=== PATIENT | female | born 1970 | race Caucasian/White ===

== ENCOUNTER 2022-02-05 15:36 | Outpatient (CLI) | payer OTHER, SELFPAY ==
[2022-02-05 22:03] LABS: Albumin* 4.5 g/dL (3.3-5.0); Chloride* 105 mmol/L (96-114)
[2022-02-05 22:04] LABS: Potassium* 3.9 mmol/L (3.6-5.1); Sodium* 140 mmol/L (135-149)
[2022-02-05 22:06] LABS: Cholesterol* 272 mg/dL (90-199); Creatinine* 0.7 mg/dL (0.5-1.5); Estimated Glomerular Filt Rate 103 ml/min
[2022-02-05 22:07] LABS: Alanine Aminotransferase* 18 U/L (4-35); Alkaline Phosphatase* 95 U/L (40-150); Aspartate Amino Transferase* 21 U/L (12-35); Bilirubin Total* 0.9 mg/dL (0.1-1.5); Blood Urea Nitrogen* 14 mg/dL (7-30); Carbon Dioxide* 27 mmol/L (20-32); Glucose* 105 mg/dL (60-115); Total Protein* 7.5 g/dL (6.0-8.3); Triglycerides* 312 mg/dL (40-149)
[2022-02-05 22:08] LABS: Calcium* 9.8 mg/dL (8.4-10.6); HDL Cholesterol* 47 mg/dL (>=50); LDL Cholesterol Calculated 163 mg/dL (<100)
[2022-02-05 22:10] LABS: C Reactive Protein* 1.9 mg/dL (0.5-1.0)
[2022-02-05 22:25] LABS: Vitamin D 25 Hydroxy* 53 ng/mL (30-80)
[2022-02-05 22:57] LABS: Hepatitis C Virus Antibody* Negative (Negative)
[2022-02-07 10:58] LABS: Rheumatoid Factor <10 IU/mL (0-14)
[2022-02-07 14:45] LABS: Anti-Nuclear Ab(ANA)IgG ELISA None Detected (None Detected)
== END 2022-02-05 15:37 | disposition home or self-care (01) ==
PROVIDERS: PCP Family Medicine; Visit Provider Family Medicine
DX: Z01.419 Encounter for gynecological examination (general) (routine) without abnormal findings (principal); E55.9 Vitamin D deficiency, unspecified; E78.5 Hyperlipidemia, unspecified; E66.9 Obesity, unspecified; E04.1 Nontoxic single thyroid nodule; M13.80 Other specified arthritis, unspecified site; Z11.59 Encounter for screening for other viral diseases
CPT/HCPCS: 80053; 80061; 82306; 86039; 86140; 86200; 86431; 86618; 86803

== ENCOUNTER 2022-02-16 13:33 | Outpatient (CLI) | payer OTHER, SELFPAY | END 2022-02-16 13:34 | disposition home or self-care (01) | LOC: FRMREF 02-22 12:02 | PROVIDERS: PCP Family Medicine; Visit Provider Family Medicine | DX: Z01.419 Encounter for gynecological examination (general) (routine) without abnormal findings (principal); R30.0 Dysuria; N39.0 Urinary tract infection, site not specified | CPT/HCPCS: 87086; 87186 ==

== ENCOUNTER 2023-04-29 11:09 | Outpatient (CLI) | payer OTHER, SELFPAY | END 2023-04-29 11:10 | disposition home or self-care (01) | PROVIDERS: PCP Family Medicine; Visit Provider Family Medicine | DX: M79.7 Fibromyalgia (principal) | CPT/HCPCS: 86140; 86812 ==

== ENCOUNTER 2023-06-13 13:39 | Outpatient (CLI) | payer OTHER, SELFPAY | END 2023-06-13 13:40 | disposition home or self-care (01) | PROVIDERS: PCP Family Medicine; Visit Provider Family Medicine | DX: Z00.00 Encounter for general adult medical examination without abnormal findings (principal); E04.1 Nontoxic single thyroid nodule; E78.5 Hyperlipidemia, unspecified; E55.9 Vitamin D deficiency, unspecified; Z13.6 Encounter for screening for cardiovascular disorders; Z13.1 Encounter for screening for diabetes mellitus | CPT/HCPCS: 80053; 80061; 82728; 84443; 86039; 86140 ==

== ENCOUNTER 2023-06-27 10:57 | Outpatient (CLI) | payer OTHER, SELFPAY ==
--- NOTE | 2023-06-27 11:00 | US_ITS ---
Patient: NIKOLAI LAGUNAS Facility:?[facility] Patient ID:?[id number] Site Patient ID:?[id number]. Site :?[id number] Study:?US-Thyroid -06/27/2023 11:55:30 AM Ordering Physician:?Felicita Martinez Final Report: INDICATION: Nontoxic thyroid nodule COMPARISON: 09/04/2017 TECHNIQUE: Edwards scale and color Doppler images were acquired of the thyroid gland. FINDINGS: Cystic nodule right thyroid lobe measures 5 x 3 x 4 millimeters, previously measuring 6 millimeters. Hypoechoic and possibly cystic nodule right thyroid lobe inferior pole measures 6 x 3 x 4 millimeters, similar to the prior study. The isthmus measures 5 millimeters. Cystic nodule upper pole left thyroid lobe measures 4 x 3 x 2 millimeters. Additional hypoechoic nodule left thyroid lobe measures 4 x 3 x 4 millimeters. The right lobe measures 5.3 x 1.4 x 1.9 cm and the left lobe measures 5.1 x 1.3 x 1.5 cm in size. There are no suspicious masses or nodules. The color Doppler images demonstrate normal vascularity. There is no evidence of cervical lymphadenopathy or parathyroid mass. IMPRESSION: Bilateral subcentimeter nodules. No suspicious findings. No further follow-up indicated. Dictated by Josh Murdock MD @ 06/27/2023 1:04:31 PM Signed by:?Josh Murdock MD @06/27/2023 1:04:31 PM (Electronic Signature)
== END 2023-06-27 10:58 | disposition home or self-care (01) ==
LOC: US 10:58
PROVIDERS: PCP Family Medicine; Visit Provider Family Medicine
DX: E04.1 Nontoxic single thyroid nodule (principal)
CPT/HCPCS: 76536

== ENCOUNTER 2023-09-10 13:24 | Outpatient (CLI) | payer OTHER, SELFPAY ==
--- NOTE | 2023-09-10 13:20 | CRLHL7_ITS ---
For Patients: As a result of the Century Cures Act, medical imaging exams and procedure reports are released immediately into your electronic medical record. You may view this report before your referring provider. If you have questions, please contact your health care provider. BILATERAL SCREENING MAMMOGRAM WITH COMPUTER-AIDED DETECTION AND TOMOSYNTHESIS TECHNIQUE: CC and MLO views were obtained. These mammographic images have been obtained using full-field digital technique. These mammographic images were interpreted with the benefit of computer-aided detection. Breast tomosynthesis was used in this interpretation. COMPARISON FILM: 07/23/22, 05/13/20, 04/23/17. FINDINGS: There are scattered areas of fibroglandular density. IMPRESSION: There is no radiographic evidence for malignancy. ASSESSMENT: BI-RADS Category 1: Negative RECOMMENDATION: Routine screening mammogram in 1 year. A lay language report of this examination will be provided to the patient. JOSH VILLANUEVA M.D. Diagnostic Radiologist [email or web address] Transcribed: 11:[address]/Dictated by: Josh Villanueva MD @ 09/17/2023 9:53:00 AM (Electronically Signed)
--- OUTSIDE RECORDS SUMMARY | 2023-09-10 13:26 | XMS_ITS | Clinical Summary ---
Author Organization [facility] Address [address] [place] [address] Care Team Providers Care Keno Dealer Name Role Phone Vinicio Hanley Primary Care Provider [phone] Resolved Problems Problem Noted Date Diagnosed Date Resolved Date iamSPRAIN OF JAW 07/25/2005 10/24/2005 Social History Tobacco Use Types Packs/Day Years Used Date Smoking Tobacco: Never Assessed Adolescent Education Answer Date Record ed Getting School Help Needed Not on file 12/23 Sex and Gender Information Value Date Recorded Sex Assigned at Not on file Gender Identity Not on file Sexual Orientation Not on file Plan of Treatment Not on file Procedures Procedure Name Priority Date/Time Associated Diagnosis Comments HC CAD, DIAGNOSTIC MAMMO, W/WO DIGITIZATION Routine 01/05/2008 11:34 AM CDT from Last 3 Months or Most Recently Relevant to Health Maintenance Results * COMPUTER AIDED MAMMOGRAPHY, DIAGNOSTIC (01/05/2008 11:34 AM CDT) Anatomical Region Laterality Modality Other 01/05/2008 11:3 4 AM CDT Impressions 01/05/2008 11:42 AM CDT DIAGNOSTIC MAMMOGRAM, BILATERAL, DIGITAL - 01/05/2008. REASON FOR EXAM: The patient is here for her baseline mammogram. She has chronic generalized breast pain. FINDINGS: Normal findings. IMPRESSION: BI-RADS ONE, NEGATIVE. RECOMMENDATION: Yearly screening mammography beginning at age 40. Decrease caffeine ingestion and consider vitamin B12. Rafael Cronin MD MAMMOGRAPHY from Last 3 Months or Most Recently Relevant to Health Maintenance Care Teams Keno Dealer Relationship Specialty Start Date End Date Vinicio Hanley [address] [address] PCP - General Family Medicine 04/08/20
--- OUTSIDE RECORDS SUMMARY | 2023-09-10 13:26 | XMS_ITS | Clinical Summary ---
Author Organization [facility] Address [place], [place] [address] Care Team Providers Care Data Sciences Director Name Role Phone Vinicio Hanley MD Primary Care Provider [phone] Allergies Active Allergy Reactions Criticality Noted Date Comments Quinine Rash 09/25/2006 Medications Medication Sig Dispensed Refills Start Date End Date Status ZYRTEC 10 MG TAB take 1 tablet (10 mg) by oral route once daily 0 09/25/2006 Active NAPROXEN 250 MG TAB take 1 tab when needed 0 09/25/2006 Active MULTIPLE VITAMIN TAB take 1 tablet by oral route once daily with food 0 09/25/2006 Active TYLENOL EXTRA STRENGTH 500 MG TAB take 2 tablets (1,000 mg) by oral route every 6 hours as needed 0 09/25/2006 Active IBUPROFEN 200 MG TAB takes 2 as needed 0 09/25/2006 Active Cholecalciferol, Vitamin D3, (VITAMIN D-3) 400 unit capsule Take by mouth once daily. 0 07/14/2015 Active sertraline (ZOLOFT) 100 mg tablet Take 100 mg by mouth. Active VENTOLIN HFA 90 mcg/actuation inhaler Inhale 2 Puffs by mouth every 4 hours if needed. 6 02/08/2017 Active cyclobenzaprine (FLEXERIL) 10 mg tablet Take 1 tablet by mouth once daily. 0 12/22/2019 Active Active Problems Problem Noted Date Diagnosed Date OBESITY 12/08/2001 OLIGOMENORRHEA 12/08/2001 HYPERCHOLESTEROLEMIA 12/08/2001 NEVUS, ATYPICAL 12/08/2001 Encounters Date Type Department Care Team Description 06/14/2023 Lab Requisition [facility] [phone] Felicita Martinez MD from Last 3 Months Family History Medical History Relation Name Comments Heart Disease Maternal Grandfather Arthritis Maternal Grandmother Asthma Maternal Grandmother Osteoporosis Maternal Grandmother Arthritis Mother Asthma Mother Osteoporosis Mother Other Paternal Grandmother glaucom a Relation Name Status Comments Maternal Grandfather Maternal Grandmother Mother Paternal Grandmother Social History Tobacco Use Types Packs/Day Years Used Date Smoking Tobacco: Never Smokeless Tobacco: Never Alcohol Use Standard Drinks/Week Comments No 0 (1 standard drink = 0.6 oz pur e alcohol) Social Connections Answer Date Recorded Frequency of Communication with Friends and Fami ly Not on file 03/18/2021 Financial Resource Strain Answer Date R ecorded Difficulty of Paying Living Expenses Not on file 03/18/2021 Difficulty of Paying Living Expenses Not on file 03/18/2021 Sex and Gender Information Value Date Recorded Sex Assigned at Not on file Gender Identity Not on file Sexual Orientation Not on file Obstetrics History Last Filed Vital Signs Vital Sign Reading Time Taken Comments Blood Pressure 129/90 07/14/2015 1:34 PM CDT Pulse 99 12/22/2019 8:53 AM CDT Temperature - - Respiratory Rate - - Oxygen Saturation 99% 12/22/2019 8:53 AM CDT Inhaled Oxygen Concentration - - Weight 99.8 kg (220 lb) 12/22/2019 8:53 AM CDT Height 172.7 cm (5' 8) 12/22/2019 8:53 AM CDT Body Mass Index 33.45 12/22/2019 8:53 AM CDT Plan of Treatment Health Maintenance Due Date Last Done Comments Tdap 09/19/1979 Depression screening for age 12+ 1980 HIV for age 15-65 09/19/1983 Hepatitis C screening for age 18-79 1986 Tetanus booster 1988 Colonoscopy through age 75 2013 Lipids for age 45-75 2013 06/26/2000, 06/27/19 01 Mammogram for age 45-75 2013 Zoster (shingles) series for age 50+ (1 of 2) 2018 BMI (ht and wt on same day) for age 18+ 12/21/2020 12/22/2019 COVID-19 vaccine series (2022- season) 2022 Influenza for age 50-64 11/17/2023 Pap test for age 21-65 06/12/2026 , 06/13/2023, 04/12/2017, Additional history exists Pneumococcal series for age 6-64 Aged Out No longer eligible based on patient's age to complete this topic Procedures Procedure Name Priority Date/Time Associated Diagnosis Comments LAB TRACKING EVENT Routine 06/13/2023 2: 00 PM CDT INSIDE H[employer] GROWER THIN PREP PAP SCREEN IMAGED Routine 06/13/2023 2:00 PM CDT HPV THIN PREP Routine 06/13/2023 2:00 PM CDT CHOLESTEROL,TOTAL Routine 06/26/2000 10: 31 AM CDT from Last 3 Months or Most Recently Relevant to Health Maintenance Results * LAB TRACKING EVENT (06/13/2023 2:00 PM CDT) Other (Other) Client Collect / Unknown 06/13/2023 2:00 PM CDT 06/14/2023 3:32 PM CDT Felicita Martinez MD LAB BILL ONLY [facility] [address] [place] [id number], * INSIDE H[employer] GROWER THIN PREP PAP SCREEN IMAGED (06/13/2023 2:00 PM CDT) Case Report Gynecologic Cytology Report ? Case: [id number] ? Authorizing Provider: ??Felicita Martinez MD ?? Collected: ? 06/13/2023 1400 ? Ordering Location: ? [facility] ?Received: ?06/17/2023 0913 ? First Screen: ?Michelle Rashid ? Pathologist: ? Ernst Maier MD ? Specimen: ?INSIDE H[employer] SPECIAL[employer] GROWER ThinPrep Vial Screening, Cervical ? 06/26/2023 9:38 AM CDT [facility] INTERPRETATION/ RESULT NEGATIVE FOR INTRAEPITHELIAL LESION OR MALIGNANCY (NIL) (none) 06/26/2023 9:38 AM T [facility] R NON-NEOPLASTIC FINDING(S) Reactive cellular changes associated with inflammation/repa ir 06/26/2023 9:38 AM CDT [facility] SPECIMEN ADEQUACY Satisfactory for evaluation Endocervical component present 06/26/2023 9:38 AM CDT [facility] HPV REQUEST HPV and PAP 06/26/2023 9:38 AM CDT [facility] Date of LMP 06/26/2023 9:38 AM CDT [facility] Comment:today Last Pap Date 04/12/2017 06/26/2023 9:38 AM CDT [facility] Abnormal Pap or [place] Bx in last 5 years No 06/26/2023 9:38 AM CDT [facility] [place] Bx Done Today No 06/26/2023 9:38 AM CDT [facility] Additional Information 06/26/2023 9:38 AM CDT [facility] Comment: Interpreted at [facility] - [address] [facility] [address], [place] [address] Automated Review Successful 06/26/2023 9:38 AM CDT [facility] Comment:Specimen processed s uccessfully by automated coordinating producer device, ThinPrep Imaging System, [employer] ANCILLARY TESTING INSIDE H[employer] GROWER HPV Ordered, Please see separate report 06/26/2023 9:38 AM CDT [facility] Note The pap test is a screening technique, not a diagnostic procedure. It is used primarily to screen for squamous cancers and precursor lesions. Published studies have shown that it is subject to both false negative and false positive results. The pap test should not be used as the sole means to diagnose or exclude pre-malignant and malignant lesions. 06/26/2023 9:38 AM CDT [facility] Other (Cervical) 06/13/2023 2:00 PM CDT 06/17/2023 9:13 AM CDT Felicita Martinez MD PATHOLOGY/CYTOLOG Y [facility] [address] [place] [address], * HPV HIGH RISK (06/13/2023 2:00 PM CDT) TYPE 16 Negative Negative 06/19/2023 11:09 AM CDT [facility] TYPE 18 Negative Negative 06/19/2023 11:09 AM CDT [facility] OTHER HIGH RISK TYPES Negative Negative 06/19/2023 11:09 AM CDT [facility] TRA [facility]ORATORY Other (Cervical) 06/13/2023 2:00 PM CDT 06/17/2023 9:13 AM CDT Narrative [facility] - 06/19/2023 11:09 AM CDT HPV types 16, 18, 31, 33, 35, 39, 45, 51, 52, 56, 58, 59, 66 and 68 DNA were undetectable or below the pre-set threshold. Methodology: Hayden Jimbo 4800 HPV Test Felicita Martinez MD MICROBIOLOGY [facility] [address] [place] [address], * (ABNORMAL) CHOLESTEROL,TOTAL (06/26/2000 10:31 AM CDT) CHOLESTEROL,TOT AL 215(A) 110 - 199 mg/dL 06/26/2000 10:3 1 AM CDT Narrative 08/26/2003 11:36 AM CDT Ordered by an unspecified provider. Other Clinical Staff CHEMISTRY from Last 3 Months or Most Recently Relevant to Health Maintenance Care Teams Data Sciences Director Relationship Specialty Start Date End Date Vinicio Hanley MD [address] [place] [address] PCP - General Family Practice 02/21/17
--- OUTSIDE RECORDS SUMMARY | 2023-09-10 13:26 | XMS_ITS | Patient Health Record ---
Author Organization [facility] Address [address] [place] [address] [address] [place] [address] Care Team Providers Care Journeyman Tool And Die Maker Name Role Phone Juan ÁLVAREZ, Felicita Primary Care Provider Unav ailable [place] gonzalez Unavailable [phone] Brian Martinez Unavailable [phone] ALLERGIES Allergen (clinical drug ingredient) Drug/Non Drug Allergy documented on EMR Reaction Allergy Type Onset Date Status quinine Quinine rash Drug Allergy Active RESULTS Component Value Reference Range Notes MRI : Lumbar Reviewed date:07/30/2023 09:13:25 AM Interpretation: Performing Lab: Notes/Report: Original Report EXAM: MRI LUMBAR SPINE WITHOUT CONTRAST CLINICAL INFORMATION: Chronic and worsening axial low back pain, 30 years duration. TECHNICAL INFORMATION: 1. Sagittal, coronal and axial T1. 2. Sagittal and axial T2. 3. Sagittal STIR. SEDATION: None. COMPARISON: No existing relevant imaging immediately accessible. INTERPRETATION: Segmentation, alignment and osseous structures: Maintained lumbar lordotic curvature and vertebral body heights. No compression deformities or other indication of fracture. Chronic type II degenerative endplate reaction at L5-S1. Marrow signal elsewhere mildly heterogeneous but within normal limits. No concern for marrow replacing processes. At no level segmental subluxation. Sacrum and sacroiliac joints: Included sacrum intact and superior sacroiliac joints unremarkable. L5-S1: Severe disc degeneration with posterior bulge and endplate osteophytic ridging. No significant spinal stenosis. Mild facet joint arthropathy and foraminal narrowing. No transiting or exiting nerve compression. L4-5: Mild disc degeneration without height loss. There is mild-moderate left facet joint arthrosis. No posterior disc contour abnormality, significant spinal canal or foraminal narrowing. L3-4: Mild-moderate disc degeneration. No posterior disc protrusion, significant spinal canal or significant foraminal narrowing. The left facet joint arthropathy is L2-3: Mild disc degeneration without significant height loss. No posterior disc protrusion, significant spinal canal or foraminal narrowing. L1-2: Mild to moderate disc degeneration with right paracentral 2-3 mm disc protrusion mildly distorting the thecal sac. No transiting nerve root compression. Neural foramina adequately patent. T12-L1: Disc height and hydration are preserved. No disc contour abnormality, spinal canal or foraminal stenosis is identified. T11-12: Disc dehydration and height loss. No posterior disc protrusion, significant spinal canal or foraminal narrowing. Neurological structures: Conus maintains normal caliber and intrinsic signal. Termination is at T12. No spinal canal collections or masses. Cauda equina nerve roots thickness and distribution normal, no adhesive arachnoiditis. Paraspinous soft tissues: No paraspinous soft tissue masses or collections. CONCLUSION: 1. Severe L5-S1 disc degeneration with posterior bulge, endplate osteophyte and mild facet joint arthrosis resulting in mildly narrowed neural foramina. No neural impingement. 2. Mild-moderate L1-2 disc degeneration with small right paracentral disc protrusion and no significant stenosis. 3. Mild-moderate L2-3 through L4-5 disc degeneration with mild-moderate left L4-5, mild left L3-4 facet joint arthrosis. Read by: Nas Lyle M.D. Reviewed and Electronically Signed by: Nas Lyle M.D. MRI : Cervical Spines Reviewed date:07/30/2023 09:13:25 AM Interpretation: Performing Lab: Notes/Report: Original Report EXAM: MRI CERVICAL SPINE WITHOUT CONTRAST CLINICAL INFORMATION: Cervicalgia. Chronic neck with intermittent bilateral shoulder/upper extremity pain. TECHNICAL INFORMATION: 1. Sagittal T1 and fat saturated T2 2. Axial, bilateral oblique and sagittal T2. 3. Axial GRE T2 SEDATION: None. COMPARISON: No relevant prior imaging immediately accessible. INTERPRETATION: The cervical spinal cord shows normal caliber and signal intensity. No syrinx, intra- or extramedullary spinal canal masses or collections are seen. Cerebellar tonsils are normally positioned above the foramen magnum and limited views of the posterior fossa unremarkable. Mild reversal normal lordotic curvature with maintained vertebral body heights. No segmental subluxations and mild degenerative anterior endplate changes C4-5 through C6-7. Marrow signal elsewhere normal. C1-2: No rotatory malalignment or widening of atlantodens interval. Odontoid morphology and intrinsic signal normal. Normal craniocervical and atlantoaxial articulations. No significant spinal canal or foraminal stenosis. C2-3: Preserved disc height. No posterior disc contour abnormality or significant spinal canal narrowing. 2. Moderate right, severe left facet joint arthropathy with moderately narrow neural foramina. C3-4: Mild disc degeneration with eccentric disc bulge and endplate osteophytes to the left. Changes are contiguous with left uncinate spurring. There is mild CSF effacement and no cord contact. Mild right, severe left facet joint arthropathy. Up to moderate right/severe left biforaminal narrowing. C4-5: Mild disc degeneration with broad bulge and endplate osteophytic ridging. Canal is reduced to 7-8 mm in midline with circumferential effacement of CSF and cord contact without distortion. Moderate right, severe left bilateral facet joint arthropathy noted with joint effusions and subchondral edema to the left. Uncinate spurring and severe biforaminal stenosis. C5-6: Moderate disc degeneration with broad posterior bulge, endplate osteophyte ridging and uncinate spurring. Moderate right, mild left facet joint degeneration accompanies. Circumferential effacement of CSF flow with canal reduction to 7-8 mm in midline. Cord contacted without displacement or distortion. Severe right/moderate left biforaminal stenoses. C6-7: Preserved disc heights and with 2 mm central disc protrusion mildly effacing ventral CSF space. No cord contact occurs. Mild bilateral facet joint arthropathy, uncinate spurring and left foraminal narrowing. Right neural foramen patent. C7-T1 and T1-2: Preserved disc heights at both levels. No posterior disc contour abnormality or spinal canal narrowing. Moderate right facet joint arthropathy occurs and neural foramina remain adequately patent. No paraspinous soft tissue masses or collections. CONCLUSION: Lordotic reversal and multilevel spondylosis, potential pain generators as follows: 1. Mild-moderate C4-5, C5-6 spinal stenoses due to bulging disc and endplate osteophytic ridging. Cord contacted without compression. Similar and more mild C3-4 and C6-7 spinal stenoses with central disc protrusion at C6-7. 2. Diffuse foraminal narrowing due to uncinate spurring and facet overgrowth resulting in severe C4-5, moderate-severe C3-4 and C5-6 bilateral stenoses. 3. Diffuse facet joint arthropathy notably severe to the left C2-3 through C4-5 with inflammatory periarticular changes at C4-5. Please correlate with any specific facetogenic pain. Read by: Nas Lyle M.D. Reviewed and Electronically Signed by: Nas Lyle M.D. REASON FOR REFERRAL No Information MEDICATIONS Medication SIG (Take, Route, Frequency, Duration) Notes Start Date End Date Status Methocarbamol 750 MG 1 tablet Orally danielito ry 4 hrs Not-Taking Magnesium Oxide 400 MG 1 tablet as neede d Orally Once a day Active Ferrous Fumarate-Vitamin C Active DULoxetine HCl 30 MG 1 capsule Orally On ce a day Active Cholecalciferol 25 MCG (1000 UT) 1 capsule Orally Once a day Active Cetirizine HCl 10 MG 1 tablet Orally Onc e a day Active Celecoxib 100 MG 1 capsule with food Orally Once a day Active Red Yeast Rice 600 MG as directed Orally Active Albuterol Sulfate HFA 108 (90 Base) MCG/ACT 1 puff as needed Inhalation every 4 hrs Active Pathfork-3 Fatty Acids 1200 MG 1 capsule Orally Three times a day Active Nystatin 702677 UNIT/GM 1 application Externally Twice a day Active Multivitamin - 1 tablet Orally Once a day Active SOCIAL HISTORY Tobacco Use: Social History Observation Description Date Details (start date - stop date) Never Smoker NA - NA Sex Assigned At : Social History Observation Description Sex Assigned At Unknown Tobacco Use/Smoking: Question Answer Notes Are you a nonsmoker Alcohol Screen Question Answer Notes Did you have a drink containing alcohol in the p ast year? No Points 0 Interpretation Negative PROBLEMS Problem Type ICD Code Onset Dates Problem Status W/U Status Risk SNOMED Code Notes Problem Other chronic pain (G89.29) Active confirmed Chronic pain (02716703) Problem Radiculopathy, lumbosacral region (M54.17) Active confirmed Lumbosacral radiculopathy (9462283) Problem Cervicalgia (M54.2) Active confirmed Cervicalgia (82637051) Problem Low back pain, unspecified (M54.50) Active confirmed Low back pain (043154291) Problem Cervical radiculopathy (M54.12) Active confirmed Cervical radiculopathy (86985224) VITAL SIGNS Blood pressure diastolic 70 mm Hg 07/23/2023 Height 67 in 07/23/2023 Blood pressure systolic 122 mm Hg 07/23/2023 Weight 256 lbs 07/23/2023 BMI 40.09 kg/m2 07/23/2023 PROCEDURES Procedure Date Ordered Date Performed Result Body Sit e Intervention: 07/23/2023 07/29/2023 sched 08/12 Intervention: 2 07/23/2023 07/29/2023 sched 07/29 Encounters Encounter Location Date Provider Diagnosis [facility] [address] [place] [address] [address] [place] [address] 06/14/2023 Jonh Perales [facility] [address] [place] [address] [address] [facility] [place] [place] [address] 07/29/2023 Jonh Perales [facility] [address] [place] [address] [address] [facility] [place] [address] 08/09/2023 Jonh Perales [address] [facility] [address] [place] [address] 07/09/2023 Jonh Perales Low back pain, unspecified M54.50 ; Cervicalgia M54.2 and Other chronic pain G89.29 [address] [facility] [address] [place] [address] 07/23/2023 Brian Martinez Radiculopathy of cervical spine M54.12 ; Radiculopathy, lumbosacral region M54.17 and Other chronic pain G89.29 [address] [facility] [address] [place] [address] 07/30/2023 Jonh Perales Radiculopathy, lumbosacral region M54.17 [address] [facility] [address] [place] [address] 08/13/2023 Jonh Perales Cervical radiculopathy M54.12 ASSESSMENTS Encounter Date Diagnosis Assessment Notes Treatment Notes Treatment Clinical Notes 07/23/2023 Radiculopathy, lumbosacral region (ICD-10 - M54.17) 07/23/2023 Radiculopathy of cervical spine (ICD-10 - M54.12) 07/30/2023 Radiculopathy, lumbosacral region (ICD-10 - M54.17) 08/13/2023 Cervical radiculopathy (ICD-10 - M54.12) 07/09/2023 Cervicalgia (ICD-10 - M54.2) 07/09/2023 Low back pain, unspecified (ICD-10 - M54.50) 07/23/2023 Other chronic pain (ICD-10 - G89.29) Joya presents to the clinic for an evaluation regarding her chronic low back pain. I have reviewed her symptoms and current medications. I checked the [facility] database and I did not find any inconsistencies. I will continue with a treatment plan consisting of conservative therapy at this time. I reviewed Joya's most recent cervical and lumbar MRIs today in clinic; please see these impressions below. Based on the results of this imaging and her current pain patterns, I am recommending a C5-6 CNADICE for her neck pain at this time. She expressed a desire to proceed with this procedure at this time so I will order it for her today in clinic. If this does not provide her with adequate pain relief, I discussed considering cervical MBBs and RFAs with her. I will discuss this treatment with her further in the future if needed. I will also consider referring her to a surgeon for her cervical spine if needed in the future due to her cervical symptoms. Regarding her low back, I am recommending a bilateral L5-S1 TFE at this time, which sh also expressed interest in proceeding with at this time, so I will order this procedure today in clinic. If this does not provide her with adequate pain relief I will then consider lumbar MBBs and RFAs for her low back. Finally, once Joya has some better pain relief from injection therapy, I will then consider referring her to [facility] for a lumbar and cervical MedX program to help with her mobility and strength. Joya expressed an interest in discussing this treatment option further after the ordered injections are completed. This treatment plan was reviewed with Joya, and she was agreeable. She will return in two weeks for further evaluation or sooner if needed. I will continue to monitor her progress, adjusting her treatment plan as necessary. Plan:1. Reviewed cervical and lumbar MRI2. Order a C5-6 CESI3. Consider cervical MBBs/RFAs4. Consider cervical surgical consultation5. Order a bilateral L5-S1 TFE6. Consider lumbar MBBs/RFAs7. Consider cervical and lumbar MedX program8. Follow-up as needed Discharge instructions reviewed verbally. The patient was instructed to return to the office as scheduled and call with any questions, problems or concerns. Cervical MRI from 07/16/2023 CONCLUSION: Lordotic reversal and multilevel spondylosis, potential pain generators as follows:1. Mild-moderate C4-5, C5-6 spinal stenoses due to bulging disc and endplate osteophytic ridging. Cord contacted without compression. Similar and more mild C3-4 and C6-7 spinal stenoses with central disc protrusion at C6-7.2. Diffuse foraminal narrowing due to uncinate spurring and facet overgrowth resulting in severe C4-5, moderate-severe C3-4 and C5-6 bilateral stenoses.3. Diffuse facet joint arthropathy notably severe to the left C2-3 through C4-5 with inflammatory periarticular changes at C4-5. Please correlate with any specific facetogenic pain. Lumbar MRI from 07/16/2023 CONCLUSION: Lordotic reversal and multilevel spondylosis, potential pain generators as follows:1. Mild-moderate C4-5, C5-6 spinal stenoses due to bulging disc and endplate osteophytic ridging. Cord contacted without compression. Similar and more mild C3-4 and C6-7 spinal stenoses with central disc protrusion at C6-7.2. Diffuse foraminal narrowing due to uncinate spurring and facet overgrowth resulting in severe C4-5, moderate-severe C3-4 and C5-6 bilateral stenoses.3. Diffuse facet joint arthropathy notably severe to the left C2-3 through C4-5 with inflammatory periarticular changes at C4-5. Please correlate with any specific facetogenic pain. 07/09/2023 Other chronic pain (ICD-10 - G89.29) Joya presents to the clinic for an evaluation regarding her chronic low back pain. I have reviewed her symptoms and current medications. I checked the [facility] database and I did not find any inconsistencies. I will continue with a treatment plan consisting of conservative therapy. I reviewed and discussed her most recent MR SI Joints dating to 08/03/2022 in great detail with her in clinic today. For further evaluation, I have ordered a Lumbar and Cervical MRI without contrast to [facility]. In the future, I will be considering injection therapy pending imaging results and patient's interest. This treatment plan was reviewed with Joya, and she was agreeable. She will return in two weeks for further evaluation or sooner if needed. I will continue to monitor her progress, adjusting her treatment plan as necessary. Plan:1. Reviewed most recent MR SI joints 2. Order MRI Lumbar and Cervical w/o contrast to [facility]3. Consider injection therapy 4. Follow up in 2 weeks for MRI review Discharge instructions reviewed verbally. The patient was instructed to return to the office as scheduled and call with any questions, problems or concerns. 07/09/2023 Other Maicol Baig, am serving as a scribe to document services personally performed by Brian Martinez PA-C, based upon my observations and the provider's statements to me. All documentation has been reviewed by the aforementioned GLORIA as well as Jonh Perales MD, prior to being entered into the official medical record. Jonh Baig MD attest that the above named individual is acting in scribe capacity, has observed Brian Martinez's performance of the services and has documented them in accordance with her direction. The documentation recorded by the scribe accurately reflects the service Brian Martinez PA-C and Jonh Perales MD, personally performed and the decisions made by them. 07/23/2023 Other Ivy Baig, am serving as a scribe to document services personally performed by Brian Martinez PA-C, based upon my observations and the provider's statements to me. All documentation has been reviewed by the aforementioned GLORIA as well as Jonh Perales MD, prior to being entered into the official medical record. Jonh Baig MD attest that the above named individual is acting in scribe capacity, has observed Brian Martinez's performance of the services and has documented them in accordance with her direction. The documentation recorded by the scribe accurately reflects the service Brian Martinez PA-C, and Jonh Perales MD personally performed and the decisions made by them. PLAN OF TREATMENT Pending Test Test Name Order Date MRI : Cervical Spines 07/09/2023 MRI : Lumbar 07/09/2023 Insurance Providers Payer Name Payer Address Payer Phone Subscriber Number Group Number Insured Name Patient Relationship to Insured Coverage Start Date Coverage End Date R [address] [address] [place] [address] [id number] Trey Hernandez Spouse - patient is the spouse of the insured MEDICAL (GENERAL) HISTORY Medical History History ICD Code Asthma Migraines GERD Depression ADD Surgical History Surgery Date(Month/Year) Tibial Tubercle Transfer Bilateral Hospitalization History Reason Date(Month/Year) Surgical
--- OUTSIDE RECORDS SUMMARY | 2023-09-10 13:26 | XMS_ITS | Continuity of Care Document ---
Author Organization [facility] Address [address] [place] [address] Phone Care Team Providers Care Propagator Name Role Phone Marilyn ÁLVAREZ, Jenn Unavailable Unavailable Allergies, Adverse Reactions, Alerts Substance Reaction Status Criticality quinine Active No Information Medications Medication Instructions Dosage Effective Dates (start - stop) Status Comments Multiple Vitamins tablet take 1 tablet by oral route every day with food - Active tramadol 50 mg tablet take 1 by Oral rou te once prn 1 - Active nystatin 100,000 unit/gram topical cream apply by topical route 2 times every day to the affected area(s) 0.00 - Active albuterol sulfate HFA 90 mcg/actuation aerosol inhaler inhale 2 puff by inhalation route every day as needed 2 puff - Active gabapentin 300 mg capsule take 1 capsule by oral route 3 times every day 300 MG - Active duloxetine 60 mg capsule,delayed release take 1 capsule by oral route every day 60 MG - Active Procedures Procedure Date Office/Outpatient Visit, Est Office/Outpatient Visit, New Routine Venipuncture Specimen Handling Rbc Sed Rate, Automated Assay Of Serum Albumin Assay Of Creatinine Transferase (Ast) (Sgot) Alanine Amino (Alt) (Sgpt) Assay Of Ck (Cpk) CReactive Protein Antinuclear Antibodies CCP Antibody Lyme Disease Antibody Rheumatoid Factor, IGM Rheumatoid Factor, IGG, IGA Assay Of Calcium Complete Cbc WAuto Diff Wbc Advance Directives Directive Yes / No Effective Date File Name No Information Encounters Encounter Description Practice Location Reason(s) For Visit Diagnoses Date Provider Providers Copied on Encounter [facility], [address], [place], [address], [place] tel:[phone] [facility] , No Information 3 Marilyn Barajas. [facility] [address], [place], [address], [place]. tel:[phone] Office/Outpa tient Visit, Est [facility], [address], [place], [address], [place] tel:[phone] [facility] , Joint Pain (chief complaint) myalgia (chief complaint) elevated esr (chief complaint) Elevated ESRPain in jointHypermo bility syndromeLumb ago 3 Marilyn Barajas. [facility] [address], [place], [address], [place]. tel:[phone] Referring Provider: Jenn Catherine, [facility] [address], [place], [address]. tel:[phone] Office/Outpa tient Visit, New [facility], [address], [place], [address], [place] tel:[phone] [facility] , Joint Pain (chief complaint) myalgia (chief complaint) elevated esr (chief complaint) Elevated ESRPain in jointMyalgia FatigueHyper mobility syndrome Jun-0 3 Marilyn Barajas. [facility] [address], [place], [address], . tel:[phone] Referring Provider: Jenn Catherine, [facility] [address], [place], [address]. tel:[phone] Family History Family Member Type Diagnosis Age At Onset Paternal grandfather Problem Diabetes mellitus Father Problem hypercholesterolemia Maternal grandmother Problem hypercholesterolemia Maternal aunt Problem cystic fibrosis Maternal grandmother Problem Cardiovascular disea se Paternal grandfather Problem prostate cancer Paternal grandfather Problem malignant neoplasm o f pancreas Maternal grandmother Problem osteoporosis Mother Problem osteoporosis Mother Problem cystic fibrosis Paternal grandmother Problem Diabetes mellitus Father Problem psoriasis with arthropathy Maternal grandmother Problem breast cancer Father Problem Diabetes mellitus Brother Problem psoriasis with arthropathy Payers Payer name Insurance type Covered green party ID Rajinder kessler(s) R [id number] Social History Type Description Quantity Date Captured Comments Alcohol Use Details Unknown Caffeine Use Details Unknown Tobacco Use Status No Information Smoking Status No Information Sex Female Chief Complaint And Reason For Visit No Information Reason For Referral Reason For Referral No Information History Of Present Illness Encounter Date Complaint History Of Prese nt Illness Joint Pain myalgia elevated esr Joint Pain myalgia elevated esr Functional Status Date Functional Assessmen t No Information Instructions Date Instruction Additional Infor mation order MRI of SI jointsrtc: tbd R elated to Lumbago proceed with dermato logy consultationmonitor symptoms, conservative caresrtc: tbd Related to Pain in joint strengthening Related to Hyper mobility syndrome check labs as listed order XRs of hands and feetmonitor symptoms, conservative caresrtc: 4-6 weeks Related to Pain in joint recheck ESR and CRPrtc: 4-6 week s Related to Elevated ESR check TSHconsider f/ u with PCP to discuss sleep study Related to Fatigue check CPKrecheck inf lammation markersencouraged low impact exercise as able Related to Myalgia strengthening Related to Hyper mobility syndrome Assessments Type Assessment Date No Information Patient Care Teams Name Effective Dates (start - stop) Status Members No Information
--- OUTSIDE RECORDS SUMMARY | 2023-09-10 13:26 | XMS_ITS | Referral Summary ---
Author Organization [facility] Address [address] [place] [address] Care Team Providers Care Solid Waste Analyst Name Role Phone Vinicio Hanley Primary Care Provider [phone] Resolved Problems Problem Noted Date Diagnosed Date [...] Recently Relevant to Health Maintenance Care Teams Solid Waste Analyst Relationship Specialty Start Date End Date Vinicio Hanley [address] [address] PCP - General Family Medicine 04/08/20
--- OUTSIDE RECORDS SUMMARY | 2023-09-10 13:26 | XMS_ITS | Clinical Summary ---
[facility] Organization [facility] Address [address], [place] [address] Care Team Providers Care Heating And Cooling Systems Engineer Name Role Phone Vinicio Hanley MD Primary Care Provider [phone] Source Comments You are receiving this document as you are listed as the primary care provider,follow-up provider, or the patient has been referred to you for consultation.This is in compliance with the Medicare and[facility] System[facility] EHR Incentive Program,which states Providers who transition their patient to another setting of careor provider of care or refers their patient to another provider of care shouldprovide summary care record for each transition of care or referral. [employer] Allergies Active Allergy Reactions Criticality Noted Date Comments Quinine 02/17/2002 rash Medications Medication Sig Dispensed Refills Start Date End Date Status TRIAMCINOLONE ACETONIDE (KENALOG) 0.1% CREAMIndications:Con tact dermatitis and other eczema, due to unspecified cause apply bid prn 60 6 05/01/2004 Active Additional Information Patient not taking.Reported on 08/21/2016 ALBUTEROL (PROVENTIL, VENTOLIN) 90MCG/ACT INHALERIndications:S hortness of breath Inhale 1 or 2 puffs by mouth every 4 to 6 hours as needed for wheezing or shortness of breath 1 99 05/01/2004 Active sertraline (ZOLOFT) 100 MG tablet Take 100 mg by mouth daily. Active Active Problems Problem Noted Date Diagnosed Date Muscle pain 05/01/2004 Overview: Epic ; Myalgia and myositis Contact dermatitis and eczema 05/01/2004 Overview: Contact dermatitis and other eczema, due to unspecified cause Resolved Problems Problem Noted Date Diagnosed Date Resolved Date Low back pain 08/21/2016 01/23/2017 Neck pain 08/21/2016 01/23/2017 Family History Medical History Relation Name Comments Coronary Artery Disease Maternal Grandfather SC-40 known congenital defect, age 60 Cancer, Breast Maternal Grandmother ? 65 Cancer, Prostate Paternal Grandfather Diabetes, Type II Paternal Grandmother Relation Name Status Comments Maternal Grandfather Maternal Grandmother Paternal Grandfather Paternal Grandmother Social History Tobacco Use Types Packs/Day Years Used Date Smoking Tobacco: Never Alcohol Use Standard Drinks/Week Comments Not Asked 0 (1 standard drink = 0.6 oz pur e alcohol) Sex and Gender Information Value Date Recorded Sex Assigned at Not on file Gender Identity Not on file Sexual Orientation Not on file Last Filed Vital Signs Vital Sign Reading Time Taken Comments Blood Pressure 118/72 05/01/2004 3:58 PM ELECTRIC SCOOP OPERATOR Pulse 84 05/01/2004 3:58 PM ELECTRIC SCOOP OPERATOR Temperature 36.6 ??C (97.9 ??F) 02/17/2002 2:10 PM CS T Respiratory Rate 16 05/01/2004 3:58 PM ELECTRIC SCOOP OPERATOR Oxygen Saturation - - Inhaled Oxygen Concentration - - Weight 102.5 kg (226 lb) 05/01/2004 3:58 PM ELECTRIC SCOOP OPERATOR Height 172.7 cm (5' 8) 05/01/2004 3:58 PM ELECTRIC SCOOP OPERATOR Body Mass Index 34.36 05/01/2004 3:58 PM ELECTRIC SCOOP OPERATOR Plan of Treatment Health Maintenance Due Date Last Done Comments Colon Cancer Screening Plan Due 1968 Hep C Screening (Preventive Services) 1968 Mammogram 1968 HIV Screening (Preventive Services) 1984 DTaP/Tdap/Td (1 - Tdap) 09/19/1987 HepB (1) 09/19/1987 Cervical Cancer Screening Due 05/02/2004 05/01/2004 Adult Preventive Visit 05/01/2005 05/01/2004 Cholesterol 2013 02/24/2002 Zoster/Shingles (1 of 2) 2018 COVID-19 Vaccine ( - 2022-2 4 season) 2022 Influenza (Season Ended) 2023 HepA Aged Out No longer eligi ble based on patient's age to complete this topic Hib Aged Out No longer eligi ble based on patient's age to complete this topic IPV (Polio) Aged Out No longer eligi ble based on patient's age to complete this topic MCV4 Aged Out No longer eligi ble based on patient's age to complete this topic Pneumococcal Aged Out No longer eligi ble based on patient's age to complete this topic Procedures Procedure Name Priority Date/Time Associated Diagnosis Comments PAP TEST, ROUTINE Routine 05/01/2004 12: 00 AM ELECTRIC SCOOP OPERATOR Screening Mal Neop-Cervix LIPID PANEL, FAST > 12 HOUR Routine 02/24/2002 9:37 AM ELECTRIC SCOOP OPERATOR from Last 3 Months or Most Recently Relevant to Health Maintenance Results * PAP TEST, ROUTINE [[id number]] (05/01/2004 12:00 AM ELECTRIC SCOOP OPERATOR) Cytology, Pap (NOTE) Care Navigator Cytology Report Patient Name: JOYA HERNANDEZ Taken: 05/01/2004 Received: 05/03/2004 Reported: 05/09/2004 Physician(s): MARIELA SANCHEZ ([id number]) ?Source of Specimen Liquid routine Pap, cervical/endocervi olivia: ?Specimen Adequacy ?Satisfactory for evaluation. ??Endocervical component present. ? Final Cytologic Interpretation/Res ult NEGATIVE FOR INTRAEPITHELIAL LESION OR MALIGNANCY (NILM) ? kp1/05/09/2004 Electronically Signed Out By JOE MENDEZ ??CT(ASCP) JOE MENDEZ ??CT(ASCP) ?Pap Smear History ?Date of Last Menstrual Period: ? 04/06/04 ?Contraceptive History: ?Not Stated/Unknown ?Other Clinical Conditions: ?LAST PAP: normal HPV reflex testing requested with interpretation of ASCUS ? [facility] 05/01/2004 05/03/2004 2:1 4 PM ELECTRIC SCOOP OPERATOR Mariela Pereira Rosy MCARTHUR CNP LAB_[address] [place], [place] [phone] * CHOLESTEROL LIPID PANEL FAST >12HR FAST (02/24/2002 9:37 AM ELECTRIC SCOOP OPERATOR) Cholesterol 198 <200 mg/dl [facility] Triglyceride 115 <200 mg/dl [facility] HDL 37 >35 mg/dl [facility] LDL, Calc. 138 mg/dl [facility] Hours Fasting 12 hours [facility] 02/24/2002 9:37 AM ELECTRIC SCOOP OPERATOR 02/24/2002 9:38 AM ELECTRIC SCOOP OPERATOR Sarika Powell MD LAB[facility] [address] [address] from Last 3 Months or Most Recently Relevant to Health Maintenance Care Teams Heating And Cooling Systems Engineer Relationship Specialty Start Date End Date Vinicio Hanley MD [address] [place] [address] PCP - General Family Practice 08/17/16
--- OUTSIDE RECORDS SUMMARY | 2023-09-10 13:26 | XMS_ITS | Encounter Summary ---
[facility] Organization [email or web address] Address [address], [place] [address] Care Team Providers Care Tombstone Setter Name Role Phone Vinicio Hanley MD Primary Care Provider [phone] Encounter Details Date Type Department Care Team (Late st Contact Info) Description 10/20/2002 Hospital External to Sarika Powell MD [address] [place] [address] [facility] admission Social History Tobacco Use Types Packs/Day Years Used Date Smoking Tobacco: Never Alcohol Use Standard Drinks/Week Comments Not Asked 0 (1 standard drink = 0.6 oz pur e alcohol) Sex and Gender Information Value Date Recorded Sex Assigned at Not on file Gender Identity Not on file Sexual Orientation Not on file documented as of this encounter Progress Notes * Sarika Powell - 10/20/2002 12:00 AM CDT documented in this encounter Plan of Treatment Not on file documented as of this encounter Visit Diagnoses Not on filedocumented in this encounter Care Teams Tombstone Setter Relationship Specialty Start Date End Date Vinicio Hanley MD [address] [place] [address] PCP - General Family Practice 08/17/16 documented as of this encounter
== END 2023-09-10 13:25 | disposition home or self-care (01) ==
LOC: MAMMO 13:25
PROVIDERS: PCP Family Medicine; Visit Provider Family Medicine
DX: Z12.31 Encounter for screening mammogram for malignant neoplasm of breast (principal)
CPT/HCPCS: 77063; 77067

== ENCOUNTER 2023-11-12 11:46 | Outpatient (CLI) | payer OTHER, SELFPAY | END 2023-11-12 11:47 | disposition home or self-care (01) | LOC: NFLDREF 11-14 12:31 | PROVIDERS: PCP Family Medicine; Referring Provider Family Medicine; Visit Provider Family Medicine | DX: R39.89 Other symptoms and signs involving the genitourinary system (principal); N39.0 Urinary tract infection, site not specified; B37.31 Acute candidiasis of vulva and vagina | CPT/HCPCS: 87086; 87186 ==

== ENCOUNTER 2024-01-08 09:42 | Outpatient (CLI) | payer OTHER, SELFPAY ==
--- OUTSIDE RECORDS SUMMARY | 2024-01-09 08:26 | XMS_ITS | Patient Health Record ---
Author Organization [facility] Address [address] [place] [address] [address] [place] [address] Care Team Providers Care Embedded Systems Developer Name Role Phone Juan ÁLVAREZ, Felicita Primary Care Provider Unav ailable [place] Unavailable [phone] Brian Martinez Unavailable [phone] Allergies Allergen (clinical drug ingredient) Drug/Non Drug Allergy documented on EMR Reaction Allergy Type Onset Date Status quinine Quinine rash Drug Allergy Active Results Component Value Reference Range Notes MRI : Cervical Spines Reviewed date:07/30/2023 09:13:25 [...] and Electronically Signed by: Nas Lyle M.D. - Original Report EXAM: MRI CERVICAL S PINE WITHOUT CONTRAST CLINICAL INFORMATION : Cervicalgia. Chronic neck with intermittent bilateral shoulder/upper extremity pain. TECHNICAL INFORMATION: 1. Sagittal T1 and f at saturated T2 2. Axial, bilateral oblique and sagittal T2. 3. Axial GRE T2 SEDATION: None. COMPARISON: No relev ant prior imaging immediately accessible. INTERPRETATION: The cervical spinal cord shows normal caliber and signal intensity. No syrinx , intra- or extramedullary spinal canal masses or collections are seen . Cerebellar tonsils are normally positioned above the foramen magnum and l imited views of the posterior fossa unremarkable. Mild reversal normal lord otic curvature with maintained vertebral body heights. No segmental subluxatio ns and mild degenerative anterior endplate changes C4-5 through C6-7. Marrow signal elsewhere normal. C1-2: No rotatory ma lalignment or widening of atlantodens interval. Odontoid morphology and intri nsic signal normal. Normal craniocervical and atlantoaxial articulations. No si gnificant spinal canal or foraminal stenosis. C2-3: Preserved disc height. No posterior disc contour abnormality or significant spinal c anal narrowing. 2. Moderate right, s evere left facet joint arthropathy with moderately narrow neural foramina. C3-4: Mild disc dege neration with eccentric disc bulge and endplate osteophytes to the left. Changes are contiguous with left uncinate spurring. There is mild CSF effacement and n o cord contact. Mild right, severe left facet joint arthropathy. Up to m oderate right/severe left biforaminal narrowing. C4-5: Mild disc dege neration with broad bulge and endplate osteophytic ridging. Canal is reduced to 7-8 mm in midline with circumferential effacement of CSF and cord contact wit hout distortion. Moderate right, severe left bilateral facet joint arthropa thy noted with joint effusions and subchondral edema to the left. Uncinate spurr ing and severe biforaminal stenosis. C5-6: Moderate disc degeneration with broad posterior bulge, endplate osteophyte ridging a nd uncinate spurring. Moderate right, mild left facet joint degeneration accompa nies. Circumferential effacement of CSF flow with canal reduction to 7-8 mm in midline. Cord contacted without displacement or distortion. Severe right/moderate left biforaminal stenoses. C6-7: Preserved disc heights and with 2 mm central disc protrusion mildly effacing ventral CSF space. No cord contact occurs. Mild bilateral facet joint arthropathy, uncinat e spurring and left foraminal narrowing. Right neural foramen patent. C7-T1 and T1-2: Pres erved disc heights at both levels. No posterior disc contour abnormality or spinal canal narrowing. Moderate right facet joint arthropathy occurs a nd neural foramina remain adequately patent. No paraspinous soft tissue masses or collections. CONCLUSION: Lordotic reversal and multilevel spondylosis, potential pain generators as follows: 1. Mild-moderate C4- 5, C5-6 spinal stenoses due to bulging disc and endplate osteophytic ridging. Cord contacted without compression. Similar and more mild C3-4 and C6-7 spinal stenoses with central disc protrusion at C6-7. 2. Diffuse foraminal narrowing due to uncinate spurring and facet overgrowth resulting in severe C4-5, moderate-severe C3-4 and C5-6 bilateral stenoses. 3. Diffuse facet anca nt arthropathy notably severe to the left C2-3 through C4-5 with inflammatory pe riarticular changes at C4-5. Please correlate with any specific facetogenic pain. Read by: Nas Lyle M.D. Reviewed and Electro nically Signed by: Nas Lyle M.D. MRI : Lumbar Reviewed date:07/30/2023 09:13:25 AM [...] and Electronically Signed by: Nas Lyle M.D. - Original Report EXAM: MRI LUMBAR SPI NE WITHOUT CONTRAST CLINICAL INFORMATION : Chronic and worsening axial low back pain, 30 years duration. TECHNICAL INFORMATION: 1. Sagittal, coronal and axial T1. 2. Sagittal and axial T2. 3. Sagittal STIR. SEDATION: None. COMPARISON: No exist ing relevant imaging immediately accessible. INTERPRETATION: Segmentation, alignm ent and osseous structures: Maintained lumbar lordotic curvature and verteb ral body heights. No compression deformities or other indication of fractu re. Chronic type II degenerative endplate reaction at L5-S1. Marrow signal elsewhere mildly heterogeneous but within normal limits. No concern for marro w replacing processes. At no level segmental subluxation. Sacrum and sacroilia c joints: Included sacrum intact and superior sacroiliac joints unremarkable. L5-S1: Severe disc d egeneration with posterior bulge and endplate osteophytic ridging. No signific ant spinal stenosis. Mild facet joint arthropathy and foraminal narrowing. No transiting or exiting nerve compression. L4-5: Mild disc dege neration without height loss. There is mild-moderate left facet joint arthrosi s. No posterior disc contour abnormality, significant spinal canal or fora jules narrowing. L3-4: Mild-moderate disc degeneration. No posterior disc protrusion, significant spinal c anal or significant foraminal narrowing. The left facet joint arthropathy is L2-3: Mild disc dege neration without significant height loss. No posterior disc protrusion, signific ant spinal canal or foraminal narrowing. L1-2: Mild to modera te disc degeneration with right paracentral 2-3 mm disc protrusion mildly di storting the thecal sac. No transiting nerve root compression. Neural foramina adequately patent. T12-L1: Disc height and hydration are preserved. No disc contour abnormality, spinal canal or fora jules stenosis is identified. T11-12: Disc dehydra tion and height loss. No posterior disc protrusion, significant spinal c anal or foraminal narrowing. Neurological structu res: Conus maintains normal caliber and intrinsic signal. Termination is at T1 2. No spinal canal collections or masses. Cauda equina nerve roots thicknes s and distribution normal, no adhesive arachnoiditis. Paraspinous soft tis sues: No paraspinous soft tissue masses or collections. CONCLUSION: 1. Severe L5-S1 disc degeneration with posterior bulge, endplate osteophyte and mild facet joint art hrosis resulting in mildly narrowed neural foramina. No neural impingement. 2. Mild-moderate L1- 2 disc degeneration with small right paracentral disc protrusion and no si gnificant stenosis. 3. Mild-moderate L2- 3 through L4-5 disc degeneration with mild-moderate left L4-5, mild left L3-4 facet joint arthrosis. Read by: Nas Lyle M.D. Reviewed and Electro nically Signed by: Nas Lyle M.D. Reason For Referral No Information Medications Medication SIG (Take, Route, Frequency, Duration) Notes [...] as needed Inhalation every 4 hrs Active [place]-3 Fatty Acids 1200 MG 1 capsule Orally Three times a day Active Nystatin 068186 UNIT/GM 1 application Externally Twice a day Active Multivitamin - 1 tablet Orally Once a day Active Social History Tobacco Use: Social History Observation Description Date Details (start date - stop date) Never Smoker NA - NA Tobacco Use/Smoking: Question Answer Notes Are you a nonsmoker Alcohol Screen Question Answer Notes Did you have a drink containing alcohol in the p ast year? No Points 0 Interpretation Negative Problems Problem Type SNOMED Code ICD Code Onset Dates Problem Status W/U Status Risk Notes Problem Chronic pain (66737747) Other chronic pain (G89.29) Active confirmed Problem Lumbosacral radiculopathy (2198098) Radiculopathy, lumbosacral region (M54.17) Active confirmed Problem Cervicalgia (50405969) Cervicalgia (M54.2) Active confirmed Problem Low back pain (271638975) Low back pain, unspecified (M54.50) Active confirmed Problem Cervical radiculopathy (58684541) Cervical radiculopathy (M54.12) Active confirmed Vital Signs Blood pressure diastolic 70 mm Hg 07/23/2023 Height 67 in 07/23/2023 Blood pressure systolic 122 mm Hg 07/23/2023 Weight 256 lbs 07/23/2023 BMI 40.09 kg/m2 07/23/2023 Procedures Procedure Date Ordered Date Performed Result Body Sit e Intervention: 2 07/23/2023 07/29/2023 sched 07/29 Intervention: 07/23/2023 07/29/2023 sched 08/12 Encounters Encounter Location Date Provider Diagnosis [facility] [address] [place] [phone] 07/09/2023 Jonh [place] Low back pain, unspecified M54.50 ; Cervicalgia M54.2 and Other chronic pain G89.29 [facility] [address] [phone] 07/23/2023 Brian Bolick Radiculopathy of cervical spine M54.12 ; Radiculopathy, lumbosacral region M54.17 and Other chronic pain G89.29 [facility] [address] [facility] [address] [place] [phone] 07/30/2023 Jonh [place] Radiculopathy, lumbosacral region M54.17 [address] [facility] [address] [place] [phone] 08/13/2023 Jonh [place] Cervical radiculopathy M54.12 [facility] [address] [place] [address] 06/14/2023 Jonh Perales [facility] [address] [place] [address] 07/29/2023 Jonh Perales [facility] [address] [place] [address] [address] [place] [address] 08/09/2023 Jonh [place] Assessments Encounter Date Diagnosis (ICD Code) Assessment Notes Treatment Notes Treatment Clinical Notes [...] symptoms and current medications. I checked the [facility] database and I did not find any inconsistencies. I will continue with a treatment plan consisting of conservative therapy at this time. I reviewed Joya's most recent cervical and lumbar MRIs today in clinic; please see these impressions below. Based on the results of this imaging and her current pain patterns, I am recommending a C5-6 CANDICE for her neck pain at this time. [...] I will then consider referring her to [facility] for a lumbar and cervical MedX [...] symptoms and current medications. I checked the [facility] database and I did not find any inconsistencies. I will continue with a treatment plan consisting of conservative therapy. I reviewed and discussed her most recent MR SI Joints dating to 08/03/2022 in great detail with her in clinic today. For further evaluation, I have ordered a Lumbar and Cervical MRI without contrast to [facility]. In the future, I will be [...] MRI Lumbar and Cervical w/o contrast to [facility]. Consider injection therapy 4. Follow up [...] performed and the decisions made by them. Plan Of Treatment Pending Test Test Name Order Date MRI : Cervical Spines 07/09/2023 MRI : Lumbar 07/09/2023 Insurance Providers Payer Name Payer Address Payer Phone Subscriber Number Group Number Insured Name Patient Relationship to Insured Coverage Start Date Coverage End Date R [address] [address] [place] [address] [id number] Trey Hernandez Spouse - patient is the spouse of the insured Medical (General) History Medical History History ICD Code Asthma Migraines GERD Depression ADD Surgical History Surgery Date(Month/Year) Tibial Tubercle Transfer Bilateral Hospitalization History Reason Date(Month/Year) Surgical
--- OUTSIDE RECORDS SUMMARY | 2024-01-09 08:26 | XMS_ITS | Clinical Summary ---
Author Organization [facility] Address [address] [place] [address] Care Team Providers Care Electric Motor Winders Assembler Name Role Phone Vinicio Hanley Primary Care Provider [phone] Resolved Problems Problem Noted Date Diagnosed Date Resolved Date iamSPRAIN OF JAW 07/25/2005 10/24/2005 Social History Tobacco Use Types Packs/Day Years Used Date Smoking Tobacco: Never Assessed Adolescent Education Answer Date Record ed Getting School Help Needed Not on file 12/23 Comments Unknown Sex and Gender Information Value Date Recorded Sex Assigned at Not on file Legal Sex Female 3:45 AM SUPERVISOR PUBLICATIONS PRODUCTION Gender Identity Not on file Sexual Orientation Not on file Plan of Treatment Not on file Insurance [facility] Care Teams Electric Motor Winders Assembler Relationship Specialty Start Date End Date Vinicio Hanley [address] [address] PCP - General Family Medicine 04/08/20
--- OUTSIDE RECORDS SUMMARY | 2024-01-09 08:26 | XMS_ITS | Clinical Summary ---
[facility] Address [address], [place] [address] Care Team Providers Care Sheep Killer Name Role Phone Vinicio Hanley MD Primary Care Provider [phone] Source Comments You are receiving this document as you are listed as the primary care provider,follow-up provider, or the patient has been referred to you for consultation.This is in compliance with the Medicare and[facility] Hospital[facility] EHR Incentive Program,which states Providers who transition their patient to another setting of careor provider of care or refers their patient to another provider of care shouldprovide summary care record for each transition of care or referral. Fast Asset Allergies Active Allergy Reactions Criticality Noted Date [...] Noted Date Diagnosed Date Muscle pain 05/01/2004 Overview (11/07/2016): Epic ; Myalgia and myositis Contact dermatitis and eczema 05/01/2004 Overview (11/07/2016): Contact dermatitis and other eczema, due to unspecified cause Resolved Problems Problem Noted Date Diagnosed Date Resolved Date Low back pain 08/21/2016 01/23/2017 Neck pain 08/21/2016 01/23/2017 Family History Medical History Relation Name Comments Coronary Artery Disease Maternal Grandfather PR-40 known congenital defect, age 60 Cancer, Breast [...] Comments Blood Pressure 118/72 05/01/2004 3:58 PM SPOT MACHINE OPERATOR Pulse 84 05/01/2004 3:58 PM SPOT MACHINE OPERATOR Temperature 36.6 ??C (97.9 ??F) 02/17/2002 2:10 PM CS T Respiratory Rate 16 05/01/2004 3:58 PM SPOT MACHINE OPERATOR Oxygen Saturation - - Inhaled Oxygen Concentration - - Weight 102.5 kg (226 lb) 05/01/2004 3:58 PM SPOT MACHINE OPERATOR Height 172.7 cm (5' 8) 05/01/2004 3:58 PM SPOT MACHINE OPERATOR Body Mass Index 34.36 05/01/2004 3:58 PM SPOT MACHINE OPERATOR Plan of Treatment Health Maintenance Due Date Last Done Comments Colon Cancer Screening Plan Due 1970 Hep C Screening (Preventive Services) 1970 Mammogram 1970 HIV Screening (Preventive Services) 1984 DTaP/Tdap/Td (1 - Tdap) 09/19/1987 HepB (1) 09/19/1987 Cervical Cancer Screening Due 05/02/2004 05/01/2004 Adult Preventive Visit 05/01/2005 05/01/2004 Cholesterol 2013 02/24/2002 Zoster/Shingles (1 of 2) 2018 COVID-19 Vaccine (2023-2 5 season) 2023 Influenza (#1) 2023 HepA Aged Out No longer eligi ble based on patient's age to complete this topic Hib Aged Out No longer eligi ble based on patient's age to complete this topic IPV (Polio) Aged Out No longer eligi ble based on patient's age to complete this topic RSV Aged Out No longer eligi ble based on patient's age to complete this topic MCV4 Aged Out No longer eligi ble based on patient's age to complete this topic Pneumococcal Aged Out No longer eligi ble based on patient's age to complete this topic Procedures Procedure Name Priority Date/Time Associated Diagnosis Comments PAP TEST, ROUTINE Routine 05/01/2004 12: 00 AM SPOT MACHINE OPERATOR Screening Mal Neop-Cervix LIPID PANEL, FAST > 12 HOUR Routine 02/24/2002 9:37 AM SPOT MACHINE OPERATOR from Last 3 Months or Most Recently Relevant to Health Maintenance Results * PAP TEST, ROUTINE [[id number]] (05/01/2004 12:00 AM SPOT MACHINE OPERATOR) Cytology, Pap (NOTE) Tin Tie Machine Operator Automatic Cytology Report Patient Name: JOYA HERNANDEZ Taken: 05/01/2004 Received: 05/03/2004 Reported: 05/09/2004 Physician(s): MARIELA SANCHEZ ([id number]) ?Source of Specimen Liquid routine Pap, cervical/endocervi [...] ? REGIONS 05/01/2004 05/03/2004 2:1 4 PM SPOT MACHINE OPERATOR Mariela Pereira Rosy MCARTHUR CNP LAB_1 Performing Organization Address City/[facility] Co de Phone Number [place], [place] [phone] * CHOLESTEROL LIPID PANEL FAST >12HR FAST (02/24/2002 9:37 AM SPOT MACHINE OPERATOR) Cholesterol 198 <200 mg/dl [facility] Triglyceride 115 <200 mg/dl [facility] HDL 37 >35 mg/dl [facility] LDL, Calc. 138 mg/dl [facility] Hours Fasting 12 hours [facility] 02/24/2002 9:37 AM SPOT MACHINE OPERATOR 02/24/2002 9:38 AM SPOT MACHINE OPERATOR Sarika Powell MD LAB_1 Performing Organization Address City/[facility] Co de Phone Number [facility] [address] [place] [phone] from Last 3 Months or Most Recently Relevant to Health Maintenance Care Teams Sheep Killer Relationship Specialty Start Date End Date Vinicio Hanley MD [address] [place] [address] PCP - General Family Practice 08/17/16
--- OUTSIDE RECORDS SUMMARY | 2024-01-09 08:26 | XMS_ITS | Referral Summary ---
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
--- OUTSIDE RECORDS SUMMARY | 2024-01-09 08:26 | XMS_ITS | Encounter Summary ---
[facility] Address [address] [address] Care Team Providers Care Combiner Operator Name Role Phone Vinicio Hanley MD Primary Care Provider [phone] Encounter Details Date Type Department Care Team (Late st Contact Info) Description 10/20/2002 Hospital External to Sarika Powell MD [address] [place] [address] [facility] admission Social History Tobacco [...] on filedocumented in this encounter Care Teams Combiner Operator Relationship Specialty Start Date End Date Vinicio Hanley MD [address] [place] [address] PCP - General Family Practice 08/17/16 documented as of this encounter
--- OUTSIDE RECORDS SUMMARY | 2024-01-09 08:26 | XMS_ITS | Clinical Summary ---
Author Organization [facility] Address [place], [place] [address] Care Team Providers Care Rate Analyst Name Role Phone Vinicio Hanley MD Primary Care Provider [phone] Allergies Active Allergy Reactions Criticality Noted Date [...] OLIGOMENORRHEA 12/08/2001 HYPERCHOLESTEROLEMIA 12/08/2001 NEVUS, ATYPICAL 12/08/2001 Family History Medical History Relation Name Comments [...] age 18+ 12/21/2020 12/22/2019 COVID-19 vaccine series (2023-25 season) 2023 Influenza for age 50-64 11/17/2023 Pap test for age 21-65 06/12/2026 4, 06/13/2023, 04/12/2017, Additional history exists Pneumococcal series for age 6-64 Aged Out No longer eligible based on patient's age to complete this topic Procedures Procedure Name Priority Date/Time Associated Diagnosis Comments HPV HIGH RISK Routine 06/13/2023 2:00 PM CDT CHOLESTEROL,TOTAL Routine 06/26/2000 10: 31 AM CDT from Last 3 Months or Most Recently Relevant to Health Maintenance Results * HPV HIGH RISK (06/13/2023 2:00 PM CDT) TYPE 16 Negative Negative 06/19/2023 11:09 AM CDT [facility] TYPE 18 Negative Negative 06/19/2023 11:09 AM CDT [facility] OTHER HIGH RISK TYPES Negative Negative 06/19/2023 11:09 AM CDT [facility] Other (Cervical) 06/13/2023 2:00 PM CDT 06/17/2023 9:13 AM CDT Narrative [facility] - 06/19/2023 11:09 AM CDT HPV types 16, 18, 31, 33, 35, 39, 45, 51, 52, 56, 58, 59, 66 and 68 DNA were undetectable or below the pre-set threshold. Methodology: iTMan Jimbo 4800 HPV Test Felicita Martinez MD MICROBIOLOGY [facility] [address] [place] [address], * (ABNORMAL) CHOLESTEROL,TOTAL (06/26/2000 10:31 AM CDT) CHOLESTEROL,TOT AL 215(A) 110 - 199 mg/dL 06/26/2000 10:3 1 AM CDT Narrative 08/26/2003 11:36 AM CDT Ordered by an unspecified provider. Other Clinical Staff CHEMISTRY from Last 3 Months or Most Recently Relevant to Health Maintenance Care Teams Rate Analyst Relationship Specialty Start Date End Date Vinicio Hanley MD [address] [place] [address] PCP - General Family Practice 02/21/17
--- OUTSIDE RECORDS SUMMARY | 2024-01-09 08:26 | XMS_ITS | Continuity of Care Document ---
Author Organization [facility] Address [address] [place] [address] Phone Care Team Providers Care Substation Operator Conversion Name Role Phone Marilyn ÁLVAREZ, Jenn Unavailable Unavailable Allergies, Adverse Reactions, Alerts Substance Reaction Status Criticality quinine Active No Information Medications Medication Instructions Dosage Effective Dates (start - stop) Status Comments duloxetine 60 mg capsule,delayed release take 1 capsule by oral route every day 60 MG - Active gabapentin 300 mg capsule take 1 capsule by oral route 3 times every day 300 MG - Active albuterol sulfate HFA 90 mcg/actuation aerosol inhaler inhale 2 puff by inhalation route every day as needed 2 puff - Active nystatin 100,000 unit/gram topical cream apply by topical route 2 times every day to the affected area(s) 0.00 - Active tramadol 50 mg tablet take 1 by Oral rou te once prn 1 - Active Multiple Vitamins tablet take 1 tablet by oral route every day with food - Active Procedures Procedure Date Office/Outpatient Visit, [...] [facility], [address], [place], [address], [place] tel:[phone] [facility] , No Information 3 Marilyn Barajas. [facility] [address], [place], [address], [place]. tel:[phone] Office/Outpa tient Visit, Est [facility], [address], [place], [address], [place] tel:[phone] [facility] , Joint Pain (chief complaint) myalgia (chief complaint) elevated esr (chief complaint) Elevated ESRPain in jointHypermo bility syndromeLumb ago 3 Marilyn Barajas. [facility] [address], [place], [address], [place]. tel:[phone] Referring Provider: Jenn Catherine, [facility] [address], [place], [address]. tel:[phone] Office/Outpa tient Visit, New [facility], [address], [place], [address], [place] tel:[phone] [facility] , Joint Pain (chief complaint) myalgia (chief complaint) elevated esr (chief complaint) Elevated ESRPain in jointMyalgia FatigueHyper mobility syndrome Jun-0 3 Marilyn Barajas. [facility] [address], [place], [address], . tel:[phone] Referring Provider: Jenn Catherine, [facility] [address], [place], [address]. tel:[phone] Family History Family Member Type Diagnosis Age [...] green party ID Rajinder kessler(s) R CI [id number] Social History Type Description Quantity Date Captured [...]
== END 2024-01-08 09:43 | disposition home or self-care (01) ==
LOC: NFLDREF 01-09 08:25
PROVIDERS: PCP Family Medicine; Referring Provider Family Medicine; Visit Provider Family Medicine
DX: E04.1 Nontoxic single thyroid nodule (principal); G47.19 Other hypersomnia; M13.80 Other specified arthritis, unspecified site
CPT/HCPCS: 84443; 86038; 86140

== ENCOUNTER 2024-07-17 10:03 | Outpatient (CLI) | payer OTHER, SELFPAY | END 2024-07-17 10:04 | disposition home or self-care (01) | LOC: NFLDREF 07-18 07:51 | PROVIDERS: PCP Family Medicine; Referring Provider Family Medicine; Visit Provider Family Medicine | DX: Z00.01 Encounter for general adult medical examination with abnormal findings (principal); N94.6 Dysmenorrhea, unspecified; M62.838 Other muscle spasm; E78.5 Hyperlipidemia, unspecified; E04.1 Nontoxic single thyroid nodule; E55.9 Vitamin D deficiency, unspecified | CPT/HCPCS: 80053; 80061; 82306; 82728; 84443 ==

== ENCOUNTER 2024-10-23 13:47 | Outpatient (CLI) | payer OTHER, SELFPAY ==
--- NOTE | 2024-10-23 13:40 | CRLHL7_ITS ---
For Patients: As a result of the Century Cures Act, medical imaging exams and procedure reports are released immediately into your electronic medical record. You may view this report before your referring provider. If you have questions, please contact your health care provider. INDICATION: BILATERAL SCREENING MAMMOGRAM, ASYMPTOMATIC 63 Y/O FEMALE COMPARISON: 09/10/2023, 07/23/2022, 05/13/2020 TECHNIQUE: Digital mammogram in CC and MLO projections including computer-aided detection (CAD) and tomosynthesis. BREAST COMPOSITION: There are scattered areas of fibroglandular density. FINDINGS: No suspicious findings. ASSESSMENT: BI-RADS 1 Negative RECOMMENDATION: Annual screening mammogram. A lay language report of this examination will be provided to the patient. Dictated by: Josh Murdock MD @ 10/26/2024 09:15:24 (Electronically Signed)
== END 2024-10-23 13:48 | disposition home or self-care (01) ==
LOC: MAMMO 13:48
PROVIDERS: PCP Family Medicine; Visit Provider Family Medicine
DX: Z12.31 Encounter for screening mammogram for malignant neoplasm of breast (principal)
CPT/HCPCS: 77063; 77067

== ENCOUNTER 2024-11-27 04:37 | Emergency (ER) | payer OTHER, SELFPAY ==
--- OUTSIDE RECORDS SUMMARY | 2024-06-18 08:30 | XMS_ITS ---
Author Organization [facility] Address [address] [place] [address] [address] [place] [address] Care Team Providers Care School Transportation Director Name Role Phone Juan ÁLVAREZ, Felicita Primary Care Provider Unav ailable BryantJonh Unavailable [phone] Zhang Jung Unavailable [phone] REASON FOR VISIT Neck Pain, Low Back Pain, Left Lower Extremity Pain Encounters Encounter Location Date Provider Diagnosis [facility] [address] [facility] [address] [place] [address] 06/18/2024 Zhang Jung Plan Of Treatment No Information Progress Notes * Joya HERNANDEZ LDOB:1970 ( 54 yo F)Acc No.[id number]:06/18/2024 Progress Notes Patient: Joya CARLSON Provider: Isaiah Jung NP :1970 A ge:53 Y S ex:Female Date:06/18/2024 Phone: Address:[address] [place], [place] [id number] Pcp:Felicita Martinez MD Subjective: * Chief Complaints: * 1 . Neck Pain. 2. Low Back Pain. 3. Left Lower Extremity Pain. * Medical History: Objective: * Vitals: Assessment: Plan: * Treatment: * Billing Information: * Visit Code: * Procedure Codes: * Electronic signature of Femi Jung CNP on 11/27/2024 at 04:39 AM CDT Sign off status: Pending * Provider: Isaiah Jung NP Date: 0 06/18/2024 Generated for Printi ng/Fajuneg/eTransmitting on: 0 11/27/2024 04:39 AM CDT
[2024-11-27] VITALS (7 sets, daily range): BP systolic 142–146; BP diastolic 77–94; PULSE 93–101; RESP 6–22; TEMP 36.8; O2SAT 93–99; BMI 36.5
--- OUTSIDE RECORDS SUMMARY | 2024-11-27 04:39 | XMS_ITS | Clinical Summary ---
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
--- OUTSIDE RECORDS SUMMARY | 2024-11-27 04:39 | XMS_ITS | Patient Health Record ---
Author Organization [facility] Address [address] [place] [address] [address] [place] [address] Care Team Providers Care Human Services Case Manager Name Role Phone Juan ÁLVAREZ, Felicita Primary Care Provider Unav ailable Jonh Perales Unavailable [phone] Zhang Jung Unavailable [phone] Allergies Allergen (clinical drug ingredient) Drug/Non Drug Allergy documented on EMR Reaction Allergy Type Onset Date Status quinine Quinine rash Drug Allergy Active Reason For Referral Reason bilateral L5-S1 TFE Diagnosis 1 Radiculopathy, lumbo sacral region (M54.17) Referral Organization [facility] Referring Provider First Name Jonh Referring Provider Last Name Angella Referring Provider Speciality Pain Medic ine Referred Organization [facility] Referred Provider Jonh Perales Referred Address [address] [place] [address] [address],[place], [place],[address], Referred Provider Specialty Pain Medicin e Referral Priority Routine Medications Medication SIG (Take, Route, Frequency, Duration) Notes Start Date End Date Status Cetirizine HCl 10 MG 1 tablet Orally Onc e a day Active Celecoxib 100 MG 1 capsule with food Orally Once a day Active Gabapentin 300 MG [address] ee times a day Active Albuterol Sulfate HFA 108 (90 Base) MCG/ACT 1 puff as needed Inhalation every 4 hrs Active Red Yeast Rice 600 MG as directed Orally Active Magnesium Oxide 400 MG 1 tablet as neede d Orally Once a day Active Ferrous Fumarate-Vitamin C Active DULoxetine HCl 30 MG 1 capsule Orally On ce a day Active Cholecalciferol 25 MCG (1000 UT) 1 capsule Orally Once a day Active Multivitamin - 1 tablet Orally Once a day Active [place]-3 Fatty Acids 1200 MG 1 capsule Or ally Three times a day Active Nystatin 734823 UNIT/GM 1 application Ex ternally Twice a day Active Social History Tobacco Use: [...] W/U Status Risk Notes Problem Chronic pain (95126016) Other chronic pain (G89.29) Active confirmed Problem Cervical radiculopathy (36475767) Radiculopathy, cervical region (M54.12) Active confirmed Problem Lumbosacral radiculopathy (0027818) Radiculopathy, lumbosacral region (M54.17) Active confirmed Vital Signs Blood pressure diastolic 88 mm Hg 05/21/2024 Height 67 in 05/21/2024 Blood pressure systolic 136 mm Hg 05/21/2024 Weight 256 lbs 05/21/2024 BMI 40.09 kg/m2 05/21/2024 Procedures Procedure Date Ordered Date Performed Result Body Sit e Intervention: 05/21/2024 08/06/2024 Sched 08/18 Encounters Encounter Location Date Provider Diagnosis [facility] [address] [place] [address] [address] [place] [address] 08/13/2024 Jonh [address]es [address] [facility] [address] [place] [phone] 05/21/2024 Zhang Jung Radiculopathy, lumbosacral region M54.17 ; Radiculopathy, cervical region M54.12 and Other chronic pain G89.29 [address] [facility] [address] [place] [phone] 08/18/2024 Jonh Perales Assessments Encounter Date Diagnosis (ICD Code) Assessment Notes Treatment Notes Treatment Clinical Notes Section Notes 05/21/2024 Radiculopathy, cervical region (ICD-10 - M54.12) 05/21/2024 Radiculopathy, lumbosacral region (ICD-10 - M54.17) 05/21/2024 Other chronic pain (ICD-10 - G89.29) Joya presents to the clinic for an evaluation regarding her chronic low back pain. I have reviewed her symptoms and current medications. I checked the [facility] database and I did not find any inconsistencies. I will continue with a treatment plan consisting of conservative therapy at this time. I will order a repeat bilateral L5-S1 TFE as she previously received 90% relief for 7 months. I will consider [facility] at her next office visit and she will consider this option. This treatment plan was reviewed with Joya, and she was agreeable. She will return in one month for further evaluation or sooner if needed. I will continue to monitor her progress, adjusting her treatment plan as necessary. Plan: 1. Order repeat bilateral L5-S1 TFE 2. Consider [facility] - cervical/lumbar MedX 3. Follow-up in one month Discharge instructions reviewed verbally. The patient was instructed to return to the office as scheduled and call with any questions, problems or concerns. Lumbar MRI ([facility])Exam Date: 07/16/2023ONCL USION: 1. Severe L5-S1 disc degeneration with posterior bulge, endplate osteophyte and mild facet joint arthrosis resulting in mildly narrowed neural foramina. No neural impingement. 2. Mild-moderate L1-2 disc degeneration with small right paracentral disc protrusion and no significant stenosis. 3. Mild-moderate L2-3 through L4-5 disc degeneration with mild-moderate left L4-5, mild left L3-4 facet joint arthrosis. 05/21/2024 Other Jovanni, Ella unger, am serving as a scribe to document services personally performed by Zhang Jung CNP, based upon my observations and the provider's statements to me. All documentation has been reviewed by the aforementioned ACCOUNT MANAGER FOREST SERVICE as well as Aries Sanders MD, prior to being entered into the official medical record. I, Aries Sanders MD attest that the above named individual is acting in scribe capacity, has observed Zhang Jung's performance of the services and has documented them in accordance with his direction. The documentation recorded by the scribe accurately reflects the service Zhang Jung NP, and Aries Sanders MD, personally performed and the decisions made by them. Plan Of Treatment Pending Test Test Name Order Date MRI : Cervical Spines 07/09/2023 MRI : Lumbar 07/09/2023 Insurance Providers Payer Name Payer Address Payer Phone Subscriber Number Group Number Insured Name Patient Relationship to Insured Coverage Start Date Coverage End Date [facility] Choice [address] [address] [place] [address] [phone] [id number] Trey Hernandez Spouse - patient is the spouse of the insured 5 Medical (General) History Medical History History ICD Code Asthma Migraines GERD Depression ADD Surgical History Surgery Date(Month/Year) Tibial Tubercle Transfer Bilateral Hospitalization History Reason Date(Month/Year) Surgical
--- OUTSIDE RECORDS SUMMARY | 2024-11-27 04:39 | XMS_ITS | Clinical Summary ---
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 Gender Identity Not on file Sexual Orientation Not on file Occupation Industry Job Start Date Job End Date homemaker Not on file Not on file Not on file Obstetrics History Last Filed [...] Health Maintenance Due Date Last Done Comments Tetanus booster 09/19/1979 Depression screening for age 12+ 1980 HIV for age 15-65 09/19/1983 Hepatitis C screening for ag e 18-79 1986 Hepatitis B series for 19+ ( 1 of 3 - 19+ 3-dose series) 09/19/1987 Colonoscopy through age 75 2013 Lipids for age 45-75 2013 06/26/2000, 06/27/19 01 Mammogram for age 45-75 2013 Pneumococcal series for age 50+ (1 of 1 - PCV) 2018 Zoster (shingles) series for age 50+ (1 of 2) 2018 BMI (ht and wt on same day) for age 18+ 12/21/2020 12/22/2019 COVID-19 vaccine series ( season) 2024 Influenza Vaccine (#1) 2024 Pap test for age 21-65 06/12/2026 4, 06/13/2023, 04/12/2017, Additional history exists RSV vaccine for adults or (1 - 1-dose 75+ series) 09/19/2043 Procedures Procedure Name Priority Date/Time Associated Diagnosis Comments HPV HIGH RISK Routine 06/13/2023 2:00 PM CDT CHOLESTEROL,TOTAL Routine 06/26/2000 10: 31 AM CDT from Last 3 Months or Most Recently Relevant to Health Maintenance Results * HPV HIGH RISK (06/13/2023 2:00 PM CDT) TYPE 16 Negative Negative 06/19/2023 11:09 AM CDT [facility] TYPE 18 Negative Negative 06/19/2023 11:09 AM CDT [facility] OTHER HIGH RISK TYPES Negative Negative 06/19/2023 11:09 AM CDT [facility] Other (Cervical) 06/13/2023 2:00 PM CDT 06/17/2023 9:13 AM CDT Narrative [facility] - 06/19/2023 11:09 AM CDT HPV types 16, 18, 31, 33, 35, 39, 45, 51, 52, 56, 58, 59, 66 and 68 DNA were undetectable or below the pre-set threshold. Methodology: Hayden Jimbo 4800 HPV Test us Felicita Martinez MD MICROBIOLOGY Final Res ult [facility] [address] [place] [address], * (ABNORMAL) CHOLESTEROL,TOTAL (06/26/2000 10:31 AM CDT) CHOLESTEROL,TOT AL 215(A) 110 - 199 mg/dL 06/26/2000 10:3 1 AM CDT Narrative 08/26/2003 11:36 AM CDT Ordered by an unspecified provider. us Other Clinical Staff CHEMISTRY Final Resul t from Last 3 Months or Most Recently Relevant to Health Maintenance Insurance R Care Teams Wound Nurse Relationship Specialty Start Date End Date Vinicio Hanley MD [address] [place] [id number] PCP - General Family Practice 02/21/17
--- OUTSIDE RECORDS SUMMARY | 2024-11-27 04:39 | XMS_ITS | Encounter Summary ---
[facility] Organization [facility] Address [address], [place] [address] Care Team Providers Care Editor Name Role Phone Vinicio Hanley MD Primary Care Provider [phone] Encounter Details Date Type Department Care Team (Late st Contact Info) Description 10/20/2002 Hospital External to Sarika Powell MD [address] [place] [address] [facility] admission Social History Tobacco Use Types Packs/Day Years Used Date Smoking Tobacco: Never Alcohol Use Standard Drinks/Week Comments Not Asked 0 (1 standard drink = 0.6 oz pur e alcohol) Comments No Sex and Gender Information Value Date Recorded Sex Assigned at Not on file Legal Sex Female 4:57 AM CDT Gender Identity Not on file Sexual Orientation Not on file documented as of this encounter Progress Notes * Sarika Powell - 10/20/2002 12:00 AM CDT documented in this encounter Plan of Treatment Not on file documented as of this encounter Visit Diagnoses Not on filedocumented in this encounter Care Teams Editor Relationship Specialty Start Date End Date Vinicio Hanley MD [address] [address] PCP - General Family Practice 08/17/16 documented as of this encounter
--- OUTSIDE RECORDS SUMMARY | 2024-11-27 04:39 | XMS_ITS | Clinical Summary ---
Author Organization [facility] Address [address], [place] [address] Care Team Providers Care Real Estate Leasing Agent Name Role Phone Vinicio Hanley MD Primary Care Provider [phone] Source Comments You are receiving this document as you are listed as the primary care provider,follow-up provider, or the patient has been referred to you for consultation.This is in compliance with the Medicare and[facility] EHR Incentive Program,which states Providers who transition their patient to another setting of careor provider of care or refers their patient to another provider of care shouldprovide summary care record for each transition of care or referral. slinkset Allergies Active Allergy Reactions Criticality Noted Date Comments Quinine 02/17/2002 rash Medications TRIAMCINOLONE ACETONIDE (KENALOG) 0.1% CREAMIndications :Contact dermatitis and other eczema, due to unspecified cause apply bid prn 60 6 5 Active Additional Information Patient not taking.Reported on 08/21/2016 ALBUTEROL (PROVENTIL, VENTOLIN) 90MCG/ACT INHALERIndicatio ns:Shortness of breath Inhale 1 or 2 puffs by mouth every 4 to 6 hours as needed for wheezing or shortness of breath 1 99 5 Active sertraline (ZOLOFT) 100 MG tablet Take [...] Name Comments Coronary Artery Disease Maternal Grandfather HI-40 known congenital defect, age 60 Cancer, Breast [...] Comments Blood Pressure 118/72 05/01/2004 3:58 PM RN HEMATOLOGY Pulse 84 05/01/2004 3:58 PM RN HEMATOLOGY Temperature 36.6 C (97.9 F) 02/17/2002 2:10 PM RN HEMATOLOGY Respiratory Rate 16 05/01/2004 3:58 PM RN HEMATOLOGY Oxygen Saturation - - Inhaled Oxygen Concentration - - Weight 102.5 kg (226 lb) 05/01/2004 3:58 PM RN HEMATOLOGY Height 172.7 cm (5' 8) 05/01/2004 3:58 PM RN HEMATOLOGY Body Mass Index 34.36 05/01/2004 3:58 PM RN HEMATOLOGY Plan of Treatment Health Maintenance Due Date Last Done Comments Colon Cancer Screening Plan Due 1968 Hep C Screening (Preventive Services) 1968 Mammogram 1968 HIV Screening (Preventive Services) 1984 DTaP/Tdap/Td Vaccine (1 - Tdap) 09/19/1987 HepB Vaccine (1) 09/19/1987 Cervical Cancer Screening Due 05/02/2004 05/01/2004 Adult Preventive Visit 05/01/2005 05/01/2004 Cholesterol 2013 02/24/2002 Pneumococcal Vaccine 50+ Yrs (1 of 1 - PCV) 2018 Zoster/Shingles Vaccine (1 of 2) 2018 COVID-19 Vaccine (2023-2 5 season) 2024 Influenza Vaccine (#1) 2024 HepA Vaccine Aged Out No longer eligi ble based on patient's age to complete this topic Hib Vaccine Aged Out No longer eligi ble based on patient's age to complete this topic IPV (Polio) Vaccine Aged Out No longe r eligible based on patient's age to complete this topic MCV4 Vaccine Aged Out No longer eligi ble based on patient's age to complete this topic Meningococcal B Vaccine Aged Out No l onger eligible based on patient's age to complete this topic Procedures Procedure Name Priority Date/Time Associated Diagnosis Comments PAP TEST, ROUTINE Routine 05/01/2004 12: 00 AM RN HEMATOLOGY Screening Mal Neop-Cervix LIPID PANEL, FAST > 12 HOUR Routine 02/24/2002 9:37 AM RN HEMATOLOGY from Last 3 Months or Most Recently Relevant to Health Maintenance Results * PAP TEST, ROUTINE [[id number]] (05/01/2004 12:00 AM RN HEMATOLOGY) Cytology, Pap (NOTE) Registered Nurse Surgical Services Cytology Report Patient Name: JOYA HERNANDEZ Taken: 05/01/2004 Received: 05/03/2004 Reported: 05/09/2004 Physician(s): MARIELA GALLEGOS ([id number]) Source of Specimen Liquid routine Pap, cervical/endocervi olivia: Specimen Adequacy Satisfactory for evaluation. Endocervical component present. Final Cytologic Interpretation/Res ult NEGATIVE FOR INTRAEPITHELIAL LESION OR MALIGNANCY (NILM) /05/09/2004 Electronically Signed Out By JOE GOMEZ(ASCP) JOE MENDEZ CT(ASCP) Pap Smear History Date of Last Menstrual Period: 04/06/04 Contraceptive History: Not Stated/Unknown Other Clinical Conditions: LAST PAP: normal HPV reflex testing requested with interpretation of ASCUS REGIONS 05/01/2004 05/03/2004 2:1 4 PM RN HEMATOLOGY us Mariela Gallegos PUMP HOUSE TECHNICIAN, ENGINEER THIRD ASSISTANT LAB_1 Ilene jaime Result [place], [place] [phone] * CHOLESTEROL LIPID PANEL FAST >12HR FAST (02/24/2002 9:37 AM RN HEMATOLOGY) Cholesterol 198 <200 mg/dl [facility] Triglyceride 115 <200 mg/dl [facility] HDL 37 >35 mg/dl [facility] LDL, Calc. 138 mg/dl [facility] Hours Fasting 12 hours [facility] 02/24/2002 9:37 AM RN HEMATOLOGY 02/24/2002 9:38 AM RN HEMATOLOGY us Sarika Powell MD LAB_1 Final Resul t [facility] [address] [address] from Last 3 Months or Most Recently Relevant to Health [place] [address] Care Teams Real Estate Leasing Agent Relationship Specialty Start Date End Date Vinicio Hanley MD [address] [place] [address] PCP - General Family Practice 08/17/16
--- NOTE | 2024-11-27 04:47 | CRLHL7_ITS ---
For Patients: As a result of the Century Cures Act, medical imaging exams and procedure reports are released immediately into your electronic medical record. You may view this report before your referring provider. If you have questions, please contact your health care provider. INDICATION: Chest pain, not otherwise described. COMPARISON: None available. TECHNIQUE: Portable AP view of the chest. FINDINGS: Medical Devices: None. Lung Volumes: Adequate inspiration. No significant atelectasis. Lungs: Clear lungs. Pleura and Pleural spaces: No significant pleural effusion. No pneumothorax. Mediastinum: Normal cardiomediastinal silhouette. Bony Thorax and Soft Tissues: No significant incidental findings. IMPRESSION: No findings to explain the clinical history. No significant interval findings. Dictated by Pablo Almaguer MD @ 11/27/2024 5:55:57 AM (Electronically Signed)
--- NOTE | 2024-11-27 04:48 | ED_ITS ---
HPI - Chest Pain General Chief Complaint: Chest Pain Stated Complaint: heart issue Time Seen by Provider: 11/27/24 04:47 History of Present Illness HPI narrative: Patient is a 54-year-old woman with no history of heart disease who woke with chest pressure in the middle of her chest. There is no radiation which did have diaphoresis and tremulousness. Symptoms as persisted but is approximately 3/10. She has had noted no shortness of breath no nausea no vomiting no fevers no chills. She has had no similar symptoms previously. She has previously in her usual state of health lose she did suffer Wellbutrin 2 weeks ago. Patient was very concerned and came in for further evaluation. Related Data Home Medications ?Medication ?Instructions ?Recorded ?Confirmed multivitamin (Multiple Vitamins 1 tab PO QDAY 02/05/22 11/05/24 tablet) ketoprofen/Lidocaine/Gabapentin/Cyclobenzaprine topica l PRN 11/12/23 11/05/24 Saccharomyces boulardii 250 mg 250 mg PO BID 07/17/24 11/05/24 capsule (Daily Probiotic (S. boulardii)) Previous Rx's ?Medication ?Instructions ?Recorded albuterol sulfate 2.5 mg/0.5 mL 5 mg inhalation Q4H #3 0 ea 06/13/23 solution for nebulization albuterol sulfate 90 mcg/actuation 2 puff inhalation Q 6H PRN 07/17/24 aerosol inhaler shortness of breath or wheez ing #8.5 grams conjugated estrogens 0.625 mg/gram 0.625 mg vaginal 2X W #30 grams 07/17/24 vaginal cream (Premarin) gabapentin 300 mg capsule 300 mg PO TID PRN pain #90 c aps 07/17/24 methocarbamol 750 mg tablet 750 mg PO QHS PRN back ashley n #60 07/17/24 tabs mupirocin 2 % topical ointment 1 applic topical BID #1 5 grams 07/17/24 nystatin 100,000 unit/gram topical 1 applic topical BI D PRN flare 07/17/24 cream yeast infection #30 grams nystatin 100,000 unit/gram topical 1 applic topical BI D #15 grams 07/17/24 powder tranexamic acid 650 mg tablet 1,300 mg (2 x 650 mg) PO TID PRN 07/17/24 heavy bleeding #30 tabs duloxetine 20 mg capsule,delayed 20 mg PO QDAY #90 cap s 09/14/24 release ipratropium bromide 0.02 % 2.5 ml inhalation Q6H PRN 0 11/05/24 solution for inhalation shortness of breath or wheez ing #62.5 mL Allergies Allergy/AdvReac Type Severity Reaction Status Date / Time quinine Allergy Intermediate Rash Verified 11/05/24 18:19 Review of Systems Status of ROS Reports: 10 or more systems reviewed and unremarkable except as noted in History and below [facility] Medical History Hypermobility of joint ?M24.9 - Joint derangement, unspecified (ICD-10) Primary osteoarthritis, left wrist ?M19.032 - Primary osteoarthritis, left wrist (ICD-10) Arthritis of left sacroiliac joint ?M47.818 - Spondylosis without myelopathy or radiculopathy, sacral and sacrococcygeal region (ICD-10) Osteoarthritis of carpometacarpal (CMC) joint of left thumb ?M18.12 - Unilateral primary osteoarthritis of first carpometacarpal joint, left hand (ICD-10) Insomnia ?G47.00 - Insomnia, unspecified (ICD-10) Cystic fibrosis carrier ?Z14.1 - Cystic fibrosis carrier (ICD-10) Thyroid nodule ?E04.1 - Nontoxic single thyroid nodule (ICD-10) Trigger finger, right middle finger ?M65.331 - Trigger finger, right middle finger (ICD-10) Eczema ?L30.9 - Dermatitis, unspecified (ICD-10) Disorder of paranasal sinus ?J34.9 - Unspecified disorder of nose and nasal sinuses (ICD-10) Angiokeratoma of vulva ?D28.0 - Benign neoplasm of vulva (ICD-10) Vitamin D deficiency ?E55.9 - Vitamin D deficiency, unspecified (ICD-10) Surgical History History of knee surgery ?Z98.890 - Other specified postprocedural states (ICD-10) Family History Mother Osteoporosis Cystic fibrosis Father Diabetes Cancer Paternal Grandfather Diabetes Prostate cancer Colorectal cancer Maternal Grandmother Heart disease Hyperlipidemia Osteoporosis Pancreatic cancer Maternal Grandmother Breast cancer Cystic fibrosis Aunt Cystic fibrosis Social History Narrative: Non smoker does not use illicit drugs does not drink alcohol Smoking Status: Never smoker Exam Narrative Exam Narrative: EXAM GENERAL: Patient appears comfortable and well. EYES: No scleral icterus. LYMPH: No supraclavicular or cervical lymphadenopathy. SKIN: Visible skin seen during exam normal or with benign process only. EXT: No dependent lower extremity pedal edema. HEART: Regular rate and rhythm with no murmurs, rubs, or gallops. LUNGS: Clear to auscultation bilaterally with no crackles or wheezes. ABD: Soft, non tender, non distended. PSYCH: Good eye contact, speech is not pressured. Const Vital Signs, click to edit/add: Vital Signs - 24 hr 11/27/24 04:42 11/27/24 04:55 11/27/24 04:56 Temperature 98.2 F Pulse Rate 96 Pulse Rate [Pulse Oximeter] 101 H Respiratory Rate 16 22 6 L Blood Pressure 142/77 H Blood Pressure [Right Upper Arm] 146/94 H Pulse Oximetry 99 97 11/27/24 05:00 11/27/24 05:15 11/27/24 05:30 Temperature Pulse Rate 99 95 97 Pulse Rate [Pulse Oximeter] Respiratory Rate 11 L 9 L 18 Blood Pressure Blood Pressure [Right Upper Arm] Pulse Oximetry 97 95 93 11/27/24 05:45 Temperature Pulse Rate 93 Pulse Rate [Pulse Oximeter] Respiratory Rate 8 L Blood Pressure Blood Pressure [Right Upper Arm] Pulse Oximetry 93 Course Course ED Course: Patient seen examined EKG D-dimer troponin CBC comprehensive metabolic panel chest x-ray pending. Vital Signs Vital signs: Initial Vital Signs Temperature 98.2 F 11/27/24 04:42 Temperature Source Temporal Artery Scan 11/27/24 04:42 Pulse Rate 101 H 11/27/24 04:42 Respiratory Rate 16 11/27/24 04:42 Blood Pressure 146/94 H 11/27/24 04:42 Blood Pressure Mean 111 H 11/27/24 04:42 Blood Pressure Position Sitting 11/27/24 04:42 Pulse Oximetry 99 11/27/24 04:42 Vital Signs Temperature 98.2 F 11/27/24 04:42 Pulse Rate 101 H 11/27/24 04:42 Respiratory Rate 16 11/27/24 04:42 Blood Pressure 146/94 H 11/27/24 04:42 Pulse Oximetry 99 11/27/24 04:42 Temperature 98.2 F 11/27/24 04:42 Pulse Rate 93 11/27/24 05:45 Respiratory Rate 8 L 11/27/24 05:45 Blood Pressure 142/77 H 11/27/24 04:56 Pulse Oximetry 93 11/27/24 05:45 MDM - Chest Pain MDM Narrative Medical decision making narrative: Patient is a 54-year-old woman with no history of any coronary disease who presented with 3 hours of substernal chest pain. EKG upon my review is unremarkable chest x-ray is unremarkable troponin D-dimer CBC comprehensive metabolic panel unremarkable. Patient was observed in her pain actually subsided. Workup to this point is unremarkable. Reassurance is offered. Patient will continue current medication follow-up with her primary physician this coming week. Lab Data Labs: Lab Results 11/27/24 Range/Units 05:03 WBC 8.33 (4.50-11.00) K/uL RBC 4.86 (4.00-5.20) m/uL Hgb 13.3 (12.0-16.0) gm/dL Hct 40.8 (33.0-51.0) % MCV 84 (80-100) fL MCH 27 (26-34) pg MCHC 33 (32-36) gm/dL RDW Coeff of Damian 13.7 (11.5-15.5) % Plt Count 271 (140-440) K/uL Neut % (Auto) 69.9 (42.0-72.0) % Lymph % (Auto) 21.8 (20-44) % Warrick % (Auto) 5.6 (0.0-11.0) % Eos % (Auto) 1.3 (0.0-7.0) % Baso % (Auto) 0.2 (0.0-3.0) % Neut # (Auto) 5.81 (1.7-7.0) K/uL Lymph # (Auto) 1.82 (0.90-2.90) K/uL Warrick # (Auto) 0.50 (0.00-0.90) K/UL Eos # (Auto) 0.11 (0.00-0.50) K/uL Baso # (Auto) 0.02 (0.00-0.30) K/uL Abs Immat Gran (auto) 0.10 (0.00-0.30) K/uL Imm/Tot Granulo (auto) 1.2 % D-Dimer Quant (PE/DVT) 0.18 (0.00-0.50) ug/ml Sodium 139 (135-149) mmol/L Potassium 3.8 (3.6-5.1) mmol/L Chloride 106 (96-114) mmol/L Carbon Dioxide 26 (20-32) mmol/L Anion Gap 7 (7-15) mEq/L BUN 18 (7-30) mg/dL Creatinine 0.7 (0.5-1.5) mg/dL Estimated Creat Clear 90.53 Estimated GFR 101 ml/min Glucose 123 H (60-115) mg/dL Calcium 9.7 (8.4-10.6) mg/dL Total Bilirubin 0.7 (0.1-1.5) mg/dL AST 24 (12-35) U/L ALT 17 (4-35) U/L Alkaline Phosphatase 93 (40-150) U/L Troponin I < 0.01 (0.01-0.04) ng/mL Total Protein 7.2 (6.0-8.3) g/dL Albumin 4.0 (3.3-5.0) g/dL Discharge Plan Discharge Clinical Impression: Chest pain Patient Disposition: Home, Self-Care Condition: Stable Instructions: Chest Pain (ED) Additional Instructions: Continue current medication Follow-up with your doctor as needed. Activity Level: No Restrictions Discharge Diet: Regular Prescriptions: No Action Saccharomyces boulardii [Daily Probiotic (S. boulardii)] 250 mg capsule 250 mg PO BID tranexamic acid 650 mg tablet 1,300 mg PO TID PRN (Reason: heavy bleeding) Qty: 30 12RF albuterol sulfate 90 mcg/actuation HFA aerosol inhaler 2 puff inhalation Q6H PRN (Reason: shortness of breath or wheezing) Qty: 8.5 12RF gabapentin 300 mg capsule 300 mg PO TID PRN (Reason: pain) Qty: 90 3RF methocarbamol 750 mg tablet 750 mg PO QHS PRN (Reason: back pain) Qty: 60 3RF nystatin 100,000 unit/gram cream 1 applic topical BID PRN (Reason: flare yeast infection) Qty: 30 4RF mupirocin 2 % ointment 1 applic topical BID Qty: 15 3RF nystatin 100,000 unit/gram powder 1 applic topical BID Qty: 15 3RF Premarin 0.625 mg/gram cream 0.625 mg vaginal 2XW Qty: 30 12RF multivitamin [Multiple Vitamins] Tablet 1 tab PO QDAY ketoprofen/Lidocaine/Gabapentin/Cyclobenzaprine cream topical PRN Rx Instructions: apply to affected area up to 4 times daily as needed albuterol sulfate 2.5 mg/0.5 mL solution for nebulization 5 mg inhalation Q4H Qty: 30 12RF ipratropium bromide 0.02 % solution 2.5 ml inhalation Q6H PRN (Reason: shortness of breath or wheezing) Qty: 62.5 0RF duloxetine 20 mg capsule,delayed release(DR/EC) 20 mg PO QDAY Qty: 90 3RF Follow Up/Referrals: Felicita Martinez MD [Primary Care Provider, Family Practice] Stand Alone Forms: [email or web address] Info Instructions
[2024-11-27 05:24] LABS: Hematocrit* 40.8 % (33.0-51.0); Hemoglobin* 13.3 gm/dL (12.0-16.0); Immature Granulocytes Abs Auto 0.10 K/uL (0.00-0.30); Immature Granulocytes Pct Auto 1.2 %; Lymphocytes Absolute Auto 1.82 K/uL (0.90-2.90); Mean Corpuscular HGB Conc 33 gm/dL (32-36); Mean Corpuscular Hemoglobin 27 pg (26-34); Mean Corpuscular Volume 84 fL (80-100); RDW Coefficient of Variation % 13.7 % (11.5-15.5); Red Blood Count* 4.86 m/uL (4.00-5.20); White Blood Count* 8.33 K/uL (4.50-11.00)
[2024-11-27 05:26] LABS: Slide Review Reflex No
[2024-11-27 05:32] LABS: Albumin* 4.0 g/dL (3.3-5.0); Chloride* 106 mmol/L (96-114); Potassium* 3.8 mmol/L (3.6-5.1); Sodium* 139 mmol/L (135-149)
[2024-11-27 05:35] LABS: Alanine Aminotransferase* 17 U/L (4-35); Alkaline Phosphatase* 93 U/L (40-150); Anion Gap 7 mEq/L (7-15); Aspartate Amino Transferase* 24 U/L (12-35); Bilirubin Total* 0.7 mg/dL (0.1-1.5); Blood Urea Nitrogen* 18 mg/dL (7-30); Calcium* 9.7 mg/dL (8.4-10.6); Carbon Dioxide* 26 mmol/L (20-32); Creatinine* 0.7 mg/dL (0.5-1.5); Est. Creatinine Clearance* 90.53; Estimated Glomerular Filt Rate 101 ml/min; Glucose* 123 mg/dL (60-115); Total Protein* 7.2 g/dL (6.0-8.3)
[2024-11-27 07:20] LABS: D Dimer Quantitative* < 0.27 ug/ml (0.00-0.50)
== END 2024-11-27 06:00 | disposition home or self-care (01) ==
PROVIDERS: Emergency Provider Internal Medicine; PCP Family Medicine
DX: R07.9 Chest pain, unspecified (principal)
CPT/HCPCS: 36415; 71045; 80053; 84484; 85025; 85379; 93005; 99283; 99284; 99285